=== PATIENT | female | born 1960 | race Caucasian/White ===

== ENCOUNTER → 2016-09-26 | Outpatient (CLI) | payer BC, OTHER ==
--- NOTE | 2016-09-26 17:18 | XR ---
EXAMINATION TYPE: XR ribs LT DATE OF EXAM: 09/26/2016 5:12 PM COMPARISON: NONE HISTORY: Left lower rib pain TECHNIQUE: 4 views FINDINGS: There is slight blunting of left costophrenic angle. I see no pneumothorax. Left lung is cl ear of consolidation. There is a nondisplaced fracture anterior left 10th rib. IMPRESSION: There is some pleural reaction or scarring at the left lung base that is improved compare d to the chest x-ray of 08/11/2015 with decreased pleural fluid. Acute nondisplaced fracture left ante rior 10th rib.. There are old healed left rib fractures.
== END | disposition home or self-care (01) ==
LOC: RADXRMAIN 16:44
PROVIDERS: ATTEND Psychiatry & Neurology Neurology
DX: S22.32XA Fracture of one rib, left side, initial encounter for closed fracture (principal)

== ENCOUNTER → 2019-03-03 | Outpatient (CLI) | payer BC ==
--- NOTE | 2019-03-03 12:17 | EST ---
EXERCISE STRESS AGE: 58 SEX: F HT: 62: WT: 104 PROTOCOL: [employer]air Stress Test STAGE: 4 DURATION OF EXERCISE: 9:10 HEART RATE REST: 50 BLOOD PRESSURE REST: 121/79 MAXIMUM HEART RATE ACHIEVED: 107 MAXIMUM BLOOD PRESSURE: 146/78 85% MPHR: 137 100% MPHR: 161 METS: 10.7 INDICATIONS: Chest pain/shortness of breath. CLINICAL INFORMATION: Patient was exercised for a total period of 9 minutes. Peak heart rate of 107 was achieved. The test was terminated because patient got short of breath and dizzy. Maximum blood pressure of 146/78 mmHg was noted. Resting EKG shows normal sinus rhythm with normal TX interval and QRS duration and normal ST-T waves. No ST-segment depression suggestive of ischemia is noted. No dysrhythmias are noted. FINAL IMPRESSION: 1. This exercise stress test is inconclusive to diagnose ischemia because only 66% of the age predicted heart rate was achieved. 2. However, patient's exercise tolerance is fairly normal. Patient did not complain of any chest pain during the test. MMODL / IJN: [id number] /
== END | disposition home or self-care (01) ==
LOC: RADNMMAIN 08:33
PROVIDERS: ATTEND Internal Medicine
DX: R93.1 Abnormal findings on diagnostic imaging of heart and coronary circulation (principal); R07.89 Other chest pain
CPT/HCPCS: 93017

== ENCOUNTER → 2019-04-29 | Outpatient (CLI) | payer BC ==
--- NOTE | 2019-04-29 13:00 | ECHOF ---
Referral Reason:R07.89 chest pain MEASUREMENTS -------- HEIGHT: 157.5 cm WEIGHT: 47.2 kg BP: RVIDd: 2.8 cm (< 3.3) IVSd: 1.1 cm (0.6 - 1.1) LVIDd: 3.6 cm (3.9 - 5.3) LVPWd: 1.0 cm (0.6 - 1.1) IVSs: 1.4 cm LVIDs: 2.6 cm LVPWs: 1.5 cm LAESV Index (A-L): 16.04 ml/m Ao Diam: 2.9 cm (2.0 - 3.7) AV Cusp: 2.1 cm (1.5 - 2.6) LA Diam: 2.6 cm (2.7 - 3.8) EPSS: 0.5 cm MV E Jose Guadalupe: 0.53 m/s MV DecT: 199 ms MV A Jose Guadalupe: 0.66 m/s MV E/A Ratio: 0.80 RAP: 5.00 mmHg RVSP: 23.34 mmHg %FS: 34.97 % EDV(Teich): 97.10 ml EF(Teich): 64.30 % ESV(Teich): 34.66 ml IVSd: 1.46 cm (0.6 - 1.1) IVSs: 1.88 cm LVIDd: 4.60 cm (3.9 - 5.3) LVIDs: 2.99 cm LVPWd: 1.36 cm (0.6 - 1.1) LVPWs: 1.76 cm MV EF SLOPE: 142.50 mm/s (70 - 150) MV EXCURSION: 1.87 cm (> 18.000) SV(Teich): 62.44 ml FINDINGS -------- Sinus rhythm. This was a technically adequate study. The left ventricular size is normal. There is borderline concentric left ventricular hypertrophy. Overall left ventricular systolic function is low-normal with, an EF between 50 - 55 %. The diasto lic filling pattern is normal for the age of the patient. The right ventricle is normal in size. Left atrium is normal size by volume. The right atrial size is normal. Interatrial and interventricular septum intact. The aortic valve is trileaflet and appears structurally normal. There is no evidence of aortic regu rgitation. There is no evidence of aortic stenosis. The mitral valve is normal. Mild mitral regurgitation is present. Mild tricuspid regurgitation present. There is no evidence of pulmonary hypertension. The right v entricular systolic pressure, as measured by Doppler, is 23.34mmHg. Trace/mild (physiologic) pulmonic regurgitation. The aortic root size is normal. The inferior vena cava was not well visualized. There is no pericardial effusion. CONCLUSIONS -------- 1. Sinus rhythm. 2. This was a technically adequate study. 3. The left ventricular size is normal. 4. There is borderline concentric left ventricular hypertrophy. 5. Overall left ventricular systolic function is low-normal with, an EF between 50 - 55 %. 6. The diastolic filling pattern is normal for the age of the patient. 7. The right ventricle is normal in size. 8. Left atrium is normal size by volume. 9. The right atrial size is normal. 10. Interatrial and interventricular septum intact. 11. The aortic valve is trileaflet and appears structurally normal. 12. There is no evidence of aortic regurgitation. 13. There is no evidence of aortic stenosis. 14. The mitral valve is normal. 15. Mild mitral regurgitation is present. 16. Mild tricuspid regurgitation present. 17. There is no evidence of pulmonary hypertension. 18. The right ventricular systolic pressure, as measured by Doppler, is 23.34mmHg. 19. Trace/mild (physiologic) pulmonic regurgitation. 20. The aortic root size is normal. 21. The inferior vena cava was not well visualized. 22. There is no pericardial effusion. PIE BAKER: Lilly Trievdi [facility]
== END | disposition home or self-care (01) ==
LOC: RADECHMAIN 11:20
PROVIDERS: ATTEND Internal Medicine
DX: I08.1 Rheumatic disorders of both mitral and tricuspid valves (principal)
CPT/HCPCS: 93306

== ENCOUNTER → 2019-05-10 | Outpatient (CLI) | payer BC | END | disposition home or self-care (01) | LOC: CPPFTMAIN 10:29 | PROVIDERS: ATTEND Internal Medicine | DX: J44.9 Chronic obstructive pulmonary disease, unspecified (principal); R94.2 Abnormal results of pulmonary function studies | CPT/HCPCS: 94060; 94726; 94729 ==

== ENCOUNTER 2023-09-15 10:37 | Inpatient (IN) | payer MEDICARE, OTHER ==
[2023-09-15 10:54] LABS: Glucose,Whole Blood 111 mg/dL (70-110)
--- NOTE | 2023-09-15 11:05 | ED ---
General Adult HPI - General Chief complaint: Shortness of Breath Stated complaint: SOB Time Seen by Provider: 09/15/23 10:38 Source: patient, EMS Mode of arrival: EMS Limitations: altered mental status - History of Present Illness Initial comments: Dictation was produced using [employer] dictation software. please excuse any grammatical, word or spelling errors. Chief Complaint: 63-year-old female past medical history of asthma, COPD fi bromyalgia presents to the ER for altered mental status and difficult in breathing History of Present Illness: 63-year-old female she began confused for the last 24 hours. She's been caught wandering around where she lives. Family noticed that she was dyspneic and confused. EMS was called on behalf of the patient. She was given breathing treatments prior to arrival. Patient allegedly has a h istory of COPD. Patient states she does for confused. She does have diffuse sharp chest pain. Cough and been short of breath. Denies any fever chills or night sweats. She denies given breathing treatment along with Solu-Medrol prior to arrival by EMS staff. The ROS documented in this emergency department record has been reviewed and confirmed by me. Those systems with pertinent positive or negative responses have been documented in the HPI. All other systems are other negative and/or no ncontributory. - Related Data Home Medications Medication Instructions Recorded Confirmed Multivitamins, Thera [Multivitamin 1 tab PO DAILY 08/03/15 09/15/23 (formulary)] Acetaminophen/Diphenhydramine 1 tab PO HS 09/15/23 09/15/23 [Tylenol PM 500-25mg] Ascorbic Acid [Vitamin C] 1,000 mg PO DAILY 09/15/23 09/15/23 Elderberry Fruit [Elderberry] 350 mg PO DAILY 09/15/23 09/15/23 Allergies Allergy/AdvReac Type Severity Reaction Status Date / Time No Known Allergies Allergy Verified 09/15/23 12:55 Review of Systems ROS Statement: Those systems with pertinent positive or pertinent negative responses have been documented in the HPI. ROS Other: All systems not noted in ROS Statement are negative. Past Medical History Past Medical History: Asthma, CVA/TIA, Fibromyalgia Additional Past Medical History / Comment(s): glaucoma, TIA-2014 History of Any Multi-Drug Resistant Organisms: None Reported Past Surgical History: No Surgical Hx Reported, Hysterectomy, Tonsillectomy Past Anesthesia/Blood Transfusion Reactions: Motion Sickness Past Psychological History: Anxiety Smoking Status: Current every day smoker Past Alcohol Use History: None Reported Past Drug Use History: Marijuana - Past Family History Mother Additional Family Medical History / Comment(s): carotid stenosis Brother(s) Family Medical History: Cancer, CVA/TIA Additional Family Medical History / Comment(s): brother had throat and bladder cancer General Exam - General Exam Comments Initial Comments: PHYSICAL EXAM: General Impression: Alert and oriented x3/4, not in acute distress HEENT: Normocephalic atraumatic, extra-ocular movements intact, pupils equal and reactive to light bilaterally, mucous membranes moist. Cardiovascular: Heart regular rate and rhythm Chest: Able to complete full sentences, no retractions, no tachypnea, diffuse lung wheezing Abdomen: abdomen soft, non-tender, non-distended, no organomegaly Musculoskeletal: Pulses present and equal in all extremities, no peripheral edema Motor: no focal deficits noted Neurological: CN II-XII grossly intact, no focal motor or sensory deficits noted Skin: Intact with no visualized rashes Psych: Normal affect and mood Limitations: altered mental status Course Vital Signs 09/15/23 09/15/23 09/15/23 10:39 10:44 11:00 Temperature 98.4 F Pulse Rate 78 76 71 Respiratory 20 22 22 Rate Blood Pressure 142/101 156/92 156/92 O2 Sat by Pulse 96 97 95 Oximetry 09/15/23 09/15/23 11:30 12:00 Temperature Pulse Rate 71 74 Respiratory 22 22 Rate Blood Pressure 132/83 113/71 O2 Sat by Pulse 93 L 95 Oximetry EKG Findings - EKG Comments: EKG Findings:: My EKG interpretation: Ventricular rate 77, sinus rhythm,. Interval 129, QRS 84, QTC 416. No OR prolongation, no QTC prolongation, no ST or T-wave changes noted. Overall, this EKG is unremarkable Medical Decision Making - Medical Decision Making Was pt. sent in by a medical professional or institution (, [place], [facility], urgent care, hospital, or fci...) When possible be specific @ -No Did you speak to anyone other than the patient for history (EMS, parent, family, police, friend...)? What history was obtained from this source @ -more history was obtained from family members at the bedside states that patient has been acting very bizarre since yesterday. She has no history of illicit drug use. They suspect that she did fall. Hit her head. Did you review nursing and triage notes (agree or disagree)? Why? @ -I reviewed and agree with nursing and triage notes Were old charts reviewed (outside hosp., previous admission, EMS record, old EKG, old radiological studies, urgent care reports/EKG's, fci records)? Report findings @ -No old charts were reviewed Differential Diagnosis (chest pain, altered mental status, abdominal pain women, abdominal pain men, vaginal bleeding, musculoskeletal, weakness, fever, dyspnea, syncope, headache, dizziness, GI bleed, back pain, seizure, CVA, palpatations, mental health)? @ -Differential Altered Mental Status: Hypoglycemia, DKA, hypercapnia, ETOH, overdose, CO poisoning, trauma, myxedema coma, HTN encephalopathy, infection, encephalitis, psychosis, intercranial hemorrhage, hepatic encephalopathy, meningitis, CVA, this is not meant to be an all-inclusive list EKG interpreted by me (3pts min.). @ -See above X-rays interpreted by me (1pt min.). @ -Chest x-ray is unremarkable CT interpreted by me (1pt min.). @ -Scan of brain is unremarkable U/S interpreted by me (1pt. min.). @ -None done What testing was considered but not performed or refused? (CT, X-rays, U/S, labs)? Why? @ -None What meds were considered but not given or refused? Why? @ -None Did you discuss the management of the patient with other professionals (professionals i.e. , PA, [facility], lab, RT, psych nurse, clinical social worker, door framer, teacher, transit police officer, patient case manager)? Give summary @ -Discussed with hospitalist for admission Was smoking cessation discussed for >3mins.? @ -No Was critical care preformed (if so, how long)? @ -No Were there social determinants of health that impacted care today? How? (Homelessness, low income, unemployed, alcoholism, drug addiction, trans portation, low edu. Level, literacy, decrease access to med. care, care home, rehab)? @ -No Was there de-escalation of care discussed even if they declined (Discuss DNR or withdrawal of care, Hospice)? DNR status @ -No What co-morbidities impacted this encounter? (DM, HTN, Smoking, COPD, CAD, Cancer, CVA, ARF, Chemo, Hep., AIDS, mental health diagnosis, sleep apnea, morbid obesity)? @ -None Was patient admitted / discharged? Hospital course, mention meds given and route, prescriptions, significant lab abnormalities, going to OR and other pertinent info. @ -63-year-old female presents emergency department for dyspnea along with altered mental status. Vital signs upon arrival are within acceptable limits. Patient not overly dyspneic appearing at the bedside. She has bilateral wheezing. Vital signs otherwise stable. She tested positive for RSV. Wheezing secondary bronchiolitis. Labs otherwise unremarkable. CT brain is negative. Undiagnosed new problem with uncertain prognosis? @ -No Drug Therapy requiring intensive monitoring for toxicity (Heparin, Nitro, Insulin, Cardizem)? @ -No Were any procedures done? @ -No Diagnosis/symptom? Acute, or Chronic, or Acute on Chronic? Uncomplicated (without systemic symptoms) or Complicated (systemic symptoms)? @ -Acute altered mental status, no obvious source, RSV bronchiolitis Side effects of treatment? @ -No Exacerbation, Progression, or Severe Exacerbation? @ -No Poses a threat to life or bodily function? How? (Chest pain, [place], [place], pneumonia, PE, COPD, DKA, ARF, appy, cholecystitis, CVA, Diverticulitis, Homicidal, Suicidal, threat to staff... and all critical care pts) @ -yes - Lab Data Result diagrams: 09/15/23 11:06 09/15/23 11:06 Lab Results 09/15/23 09/15/23 09/15/23 Range/Units 10:51 11:06 11:06 WBC 5.7 (3.8-10.6) k/uL RBC 4.52 (3.80-5.40) m/uL Hgb 14.0 (11.4-16.0) gm/dL Hct 42.3 (34.0-46.0) % MCV 93.7 (80.0-100.0) fL MCH 31.0 (25.0-35.0) pg MCHC 33.1 (31.0-37.0) g/dL RDW 14.4 (11.5-15.5) % Plt Count 269 (150-450) k/uL MPV 7.9 Neutrophils % 67 % Lymphocytes % 19 % Monocytes % 9 % Eosinophils % 2 % Basophils % 0 % Neutrophils # 3.8 (1.3-7.7) k/uL Lymphocytes # 1.1 (1.0-4.8) k/uL Monocytes # 0.5 (0-1.0) k/uL Eosinophils # 0.1 (0-0.7) k/uL Basophils # 0.0 (0-0.2) k/uL VBG pH (7.31-7.41) VBG pCO2 (37-51) mmHg VBG HCO3 (24-28) mmol/L Sodium 141 (137-145) mmol/L Potassium 4.1 (3.5-5.1) mmol/L Chloride 108 H (98-107) mmol/L Carbon Dioxide 19 L (22-30) mmol/L Anion Gap 14 mmol/L BUN 13 (7-17) mg/dL Creatinine 0.74 (0.52-1.04) mg/dL Est GFR (CKD-EPI)AfAm >90 (>60 ml/min/1.73 sqM) Est GFR (CKD-EPI)NonAf 87 (>60 ml/min/1.73 sqM) Glucose 116 H (74-99) mg/dL POC Glucose (mg/dL) 111 H (70-110) mg/dL POC Glu Warehouse Checker ID Melanie Gould Plasma Lactic Acid Anthony (0.7-2.0) mmol/L Calcium 8.8 (8.4-10.2) mg/dL Magnesium 1.9 (1.6-2.3) mg/dL Total Bilirubin 0.7 (0.2-1.3) mg/dL AST 36 (14-36) U/L ALT 21 (4-34) U/L Alkaline Phosphatase 75 (38-126) U/L Total Protein 6.9 (6.3-8.2) g/dL Albumin 4.3 (3.5-5.0) g/dL Influenza Type A (PCR) (Not Detectd) Influenza Type B (PCR) (Not Detectd) RSV (PCR) (Not Detectd) SARS-CoV-2 (PCR) (Not Detectd) 09/15/23 09/15/23 09/15/23 Range/Units 11:06 11:06 11:06 WBC (3.8-10.6) k/uL RBC (3.80-5.40) m/uL Hgb (11.4-16.0) gm/dL Hct (34.0-46.0) % MCV (80.0-100.0) fL MCH (25.0-35.0) pg MCHC (31.0-37.0) g/dL RDW (11.5-15.5) % Plt Count (150-450) k/uL MPV Neutrophils % % Lymphocytes % % Monocytes % % Eosinophils % % Basophils % % Neutrophils # (1.3-7.7) k/uL Lymphocytes # (1.0-4.8) k/uL Monocytes # (0-1.0) k/uL Eosinophils # (0-0.7) k/uL Basophils # (0-0.2) k/uL VBG pH 7.38 (7.31-7.41) VBG pCO2 39 (37-51) mmHg VBG HCO3 23 L (24-28) mmol/L Sodium (137-145) mmol/L Potassium (3.5-5.1) mmol/L Chloride (98-107) mmol/L Carbon Dioxide (22-30) mmol/L Anion Gap mmol/L BUN (7-17) mg/dL Creatinine (0.52-1.04) mg/dL Est GFR (CKD-EPI)AfAm (>60 ml/min/1.73 sqM) Est GFR (CKD-EPI)NonAf (>60 ml/min/1.73 sqM) Glucose (74-99) mg/dL POC Glucose (mg/dL) (70-110) mg/dL POC Glu Warehouse Checker ID Plasma Lactic Acid Anthony 1.7 (0.7-2.0) mmol/L Calcium (8.4-10.2) mg/dL Magnesium (1.6-2.3) mg/dL Total Bilirubin (0.2-1.3) mg/dL AST (14-36) U/L ALT (4-34) U/L Alkaline Phosphatase (38-126) U/L Total Protein (6.3-8.2) g/dL Albumin (3.5-5.0) g/dL Influenza Type A (PCR) Not Detected (Not Detectd) Influenza Type B (PCR) Not Detected (Not Detectd) RSV (PCR) Detected A (Not Detectd) SARS-CoV-2 (PCR) Not Detected (Not Detectd) Disposition Clinical Impression: AMS (altered mental status) Disposition: ADMITTED IP TO THIS [facility] Condition: Fair Decision Time: 13:06
[2023-09-15 11:21] LABS: Basophils % (A) 0 %; Eosinophils # (A) 0.1 k/uL (0-0.7); Eosinophils % (A) 2 %; HCT 42.3 % (34.0-46.0); Lymphocytes # (A) 1.1 k/uL (1.0-4.8); Lymphocytes % (A) 19 %; MCHC 33.1 g/dL (31.0-37.0); MCV 93.7 fL (80.0-100.0); Mean Platelet Volume 7.9; Monocytes # (A) 0.5 k/uL (0-1.0); Monocytes % (A) 9 %; Neutrophils # (A) 3.8 k/uL (1.3-7.7); Neutrophils % (A) 67 %; Platelet Count 269 k/uL (150-450); RBC 4.52 m/uL (3.80-5.40); RDW 14.4 % (11.5-15.5); WBC 5.7 k/uL (3.8-10.6)
[2023-09-15 11:39] LABS: ALT 21 U/L (4-34); AST 36 U/L (14-36); African American GFR (CKD) >90 (>60 ml/min/1.73 sqM); Albumin 4.3 g/dL (3.5-5.0); Alkaline Phosphatase 75 U/L (38-126); Anion Gap 14 mmol/L; Blood Urea Nitrogen 13 mg/dL (7-17); Calcium 8.8 mg/dL (8.4-10.2); Carbon Dioxide 19 mmol/L (22-30); Chloride 108 mmol/L (98-107); Glucose 116 mg/dL (74-99); Magnesium 1.9 mg/dL (1.6-2.3); Non-African American GFR(CKD) 87 (>60 ml/min/1.73 sqM); Potassium 4.1 mmol/L (3.5-5.1); Sodium 141 mmol/L (137-145); Total Bilirubin 0.7 mg/dL (0.2-1.3); Total Protein 6.9 g/dL (6.3-8.2)
[2023-09-15 11:47] LABS: VBG PH 7.38 (7.31-7.41)
--- NOTE | 2023-09-15 12:31 | CT ---
EXAMINATION TYPE: CT brain wo con CT DLP: 1095.4 mGycm, Automated exposure control for dose reduction was used. DATE OF EXAM: 09/15/2023 11:57 AM COMPARISON: None. CLINICAL INDICATION:Female, 63 years old with history of ams, confusion TECHNIQUE: Brain: Axial CT images of the brain were obtained with coronal and sagittal reformats created and rev iewed. Contrast used: None. Oral contrast used: None. FINDINGS: Extra-axial spaces: No abnormal extra-axial fluid collections. Ventricular system: Within normal limits. Cerebral parenchyma: No increased attenuation to suggest acute intraparenchymal hemorrhage. The gra y-white matter interface appears maintained. No significant atrophy. White matter unremarkable by C T. Small calcifications in the bilateral basal ganglia. Cerebellum: No acute abnormality. Mass effect: No evidence of mass effect or midline shift. Intracranial vasculature: Unremarkable Soft tissues: Normal. Visualized orbits: Orbital contents appear grossly intact. Calvarium/osseous structures: No evidence of calvarial fracture. Paranasal sinuses and mastoid air cells: Mild/moderate scattered paranasal sinus disease. MRI is more sensitive for detecting acute processes such as infarct, and may be considered if clinica lly warranted. IMPRESSION: No acute intracranial CT abnormality.
[2023-09-15] MEDS ORDERED: NALOXONE 0.4 MG/ML 1 ML VIAL IV PRN (13:02)
[2023-09-15] MEDS ORDERED: DOCUSATE 100 MG CAP PO PRN (13:09)
[2023-09-15] MEDS ORDERED: ONDANSETRON 4 MG/2 ML VIAL IVP PRN (13:09)
[2023-09-15] MEDS ORDERED: MAG HYDROX/AL HYDROX/SIMETH 30 ML CUP PO PRN (13:09)
--- NOTE | 2023-09-15 13:37 | XR ---
EXAMINATION TYPE: XR chest 1V portable DATE OF EXAM: 09/15/2023 Comparison: 08/11/2015 Clinical History: 63-year-old female wheezing Findings: Heart normal size. Aorta and pulmonary vasculature are within normal limits. Hyperinflation. No conso lidation or pleural effusion. Impression: COPD. No acute process seen.
[2023-09-15] MEDS: SODIUM CHLORIDE 0.9% 1,000 ML IV SCH (13:58)
[2023-09-15] MEDS ORDERED: methylPREDNISolone SOD SUCCIN 125 MG in SODIUM CHLORIDE 0.9% 100 ML IVPB STA (14:01)
[2023-09-15] MEDS ORDERED: IPRATROPIUM-ALBUTEROL 3 ML NEB INHALATION PRN (14:01)
[2023-09-15] MEDS ORDERED: methylPREDNISolone SOD SUCCI 125 MG/2 ML VIAL IVP ONE (14:15)
[2023-09-15] MEDS ORDERED: methylPREDNISolone SOD SUCCI 125 MG/2 ML VIAL IV ONE (14:15)
[2023-09-15 14:19] LABS: Appearance,Urine Clear (Clear); Bacteria,Urine Many /hpf; Bilirubin,Urine Negative (Negative); Blood,Urine Small (Negative); Color,Urine Yellow; Glucose,Urine (UA) Negative (Negative); Hyaline Casts,Urine 1 /lpf (0-2); Ketones,Urine 2+ (Negative); Leukocyte Esterase,Urine Small (Negative); Mucus,Urine Moderate /hpf; Nitrite,Urine Positive (Negative); PH, Urine 5.5 (5.0-8.0); Protein,Urine Trace (Negative); RBC,Urine 2 /hpf (0-5); Squamous Epithelial Cell,Urine <1 /hpf (0-4); Urobilinogen,Urine <2.0 mg/dL (<2.0); WBC,Urine 6 /hpf (0-5)
[2023-09-15 14:26] LABS: Amphetamine Screen,Urine Not Detected (NotDetected); Benzodiazepines Screen,Urine Not Detected (NotDetected); Cocaine Screen,Urine Not Detected (NotDetected); Methadone Screen, Urine Not Detected (NotDetected); Opiate Screen,Urine Not Detected (NotDetected); Phencyclidine Screen,Urine Not Detected (NotDetected); Tricyclic Antidepressant,Urine Not Detected (NotDetected); Urn Cannabinoid Scrn Detected (NotDetected)
[2023-09-15 14:27] LABS: Barbiturate Screen,Urine Not Detected (NotDetected); Oxycodone Screen, Urine Not Detected (NotDetected)
--- NOTE | 2023-09-15 14:28 | P.HPIM ---
History of Present Illness H&P Date: 09/15/23 63 year old F with no significant PMH and history of smoking presents to the ED for altered mental status. Niece and sister is at bedside providing majority of the history. Last known normal was yesterday morning on the phone. Niece and sister attempted to call the patient last night where she did not answer. They were able to reach her this morning, she appeared confused and short of breath which prompted them to call EMS. The patient did mention she believes she spent majority of the night on the porch, unable to get up, crawled her way to the bedroom at some point last night where she may have soiled herself. When EMS arrived, patient was found sitting on the floor with her head down, di aphoretic, short of breath, hypoxic with O2 saturation in the 80s. Reports smoking 1/4 pack daily for many years (> 10). Denies EtOH or illicit drug use. Patient's mentation has considerably improved during the encounter but unable to remember much of the events leading up to her hospitalization. She reports LUE numbness and clumsiness. She reports nasal congestion, cough and shortness of breath that has been ongoing for the past 2-3 days. She reports left sided chest pain, sharp and stabbing, worse with deep inspiration. In the ED, patient underwent extensive evaluation. Vital signs were stable however hypoxic to 84% when talking. CBC unremarkable. VBG pH 7.28, pCO2 39. CMP Cl 108, bicarb 19, glu 116. Lactic acid 1.7. RSV + EKG sinus arrhythmia, ST depression. Brain CT negative for acute findings. Patient is admitted for workup of altered mental status. General: non toxic, mild distress, appears at stated age Derm: warm, dry Head: atraumatic, normocephalic, symmetric Eyes: EOMI, no lid lag, anicteric sclera Mouth: no lip lesion, mucus membranes moist Cardiovascular: S1S2 reg, no murmur Lungs: Diffuse expiratory wheezing bilateral, no rhonchi, no rales , + accessory muscle use Ext: no gross muscle atrophy, no edema, no contractures Neuro: no focal neuro deficits Psych: Alert, oriented, appropriate affect Based on my assessment of this patient, this patient meets a high complexity level of care. Patient has an acute diagnosis of altered mental status that poses a threat to life or bodily function. Found to be hypoxic and RSV+ Aucte metabolic encephalopathy: Likely due to hypoxia. She does reports LUE numbness and clumsiness. CT head negative for CVA. Obtain TSH, UA/UCx, Ammonia, UDS, EtOH, B12 and Folate. Fall precautions. Neurochecks. May need MRI brain and/or EEG, will defer decision to Neurology. Acute hypoxic respiratory failure: Likely due to below. Obtain D-Dimer. Obtain pro-calcitonin. Obtain CXR. RSV pneumonia: Supportive treatment. Acute COPD exacerbation: DuoNeb scheduled and PRN for SOB/wheezing. Start SoluMedrol 60 mg IV Q6H. Pulmonary consult. Chest pain: Appears pleuritic. D-Dimer to rule out low probability of PE. Trend Trop/EKG to rule out ACS. Obtain Echo. Telemetry monitoring. Smoker: Patient offered nicotine patch. CODE STATUS: FULL CODE DVT Prophylaxis: Lovenox SQ GI Prophylaxis: Protonix Designated medical POA if patient is not able to make medical decisions for themselves: Sister I have reviewed the following database consultant notes: I have reviewed the results of the following tests: As above. I have ordered the following tests: As above. I have discussed the care of this patient with the following independent historian: Sister and niece. I have independently interpreted the following test below: EKG as above. I have discussed the management of this patient with the following physician: Past Medical History Past Medical History: Asthma, CVA/TIA, Fibromyalgia Additional Past Medical History / Comment(s): glaucoma, TIA-2013 History of Any Multi-Drug Resistant Organisms: None Reported Past Surgical History: No Surgical Hx Reported, Hysterectomy, Tonsillectomy Past Anesthesia/Blood Transfusion Reactions: Motion Sickness Past Psychological History: Anxiety Smoking Status: Current every day smoker Past Alcohol Use History: None Reported Past Drug Use History: Marijuana - Past Family History Mother Additional Family Medical History / Comment(s): carotid stenosis Brother(s) Family Medical History: Cancer, CVA/TIA Additional Family Medical History / Comment(s): brother had throat and bladder cancer Medications and Allergies Home Medications Medication Instructions Recorded Confirmed Type Multivitamins, Thera [Multivitamin 1 tab PO DAILY 08/03/15 09/15/23 History (formulary)] Acetaminophen/Diphenhydramine 1 tab PO HS 09/15/23 09/15/23 History [Tylenol PM 500-25mg] Ascorbic Acid [Vitamin C] 1,000 mg PO DAILY 09/15/23 09/15/23 History Elderberry Fruit [Elderberry] 350 mg PO DAILY 09/15/23 09/15/23 History Allergies Allergy/AdvReac Type Severity Reaction Status Date / Time No Known Allergies Allergy Verified 09/15/23 12:55 Physical Exam Vitals: Vital Signs Temp Pulse Resp BP Pulse Ox 09/15/23 14:22 98.7 F 81 18 111/83 90 L 09/15/23 12:00 74 22 113/71 95 09/15/23 11:30 71 22 132/83 93 L 09/15/23 11:00 71 22 156/92 95 09/15/23 10:44 76 22 156/92 97 09/15/23 10:39 98.4 F 78 20 142/101 96 Intake and Output 09/14/23 09/15/23 09/15/23 22:59 06:59 14:59 Other: Weight 45.359 kg Results CBC & Chem 7: 09/15/23 11:06 09/15/23 11:06 Labs: Abnormal Lab Results - Last 24 Hours (Table) 09/15/23 09/15/23 09/15/23 Range/Units 10:51 11:06 11:06 VBG HCO3 (24-28) mmol/L Chloride 108 H (98-107) mmol/L Carbon Dioxide 19 L (22-30) mmol/L Glucose 116 H (74-99) mg/dL POC Glucose (mg/dL) 111 H (70-110) mg/dL Urine Protein (Negative) Urine Ketones (Negative) Urine Blood (Negative) Urine Nitrite (Negative) Ur Leukocyte Esterase (Negative) Urine WBC (0-5) /hpf Urine Bacteria (None) /hpf Urine Mucus (None) /hpf RSV (PCR) Detected A (Not Detectd) 09/15/23 09/15/23 Range/Units 11:06 14:05 VBG HCO3 23 L (24-28) mmol/L Chloride (98-107) mmol/L Carbon Dioxide (22-30) mmol/L Glucose (74-99) mg/dL POC Glucose (mg/dL) (70-110) mg/dL Urine Protein Trace H (Negative) Urine Ketones 2+ H (Negative) Urine Blood Small H (Negative) Urine Nitrite Positive H (Negative) Ur Leukocyte Esterase Small H (Negative) Urine WBC 6 H (0-5) /hpf Urine Bacteria Many H (None) /hpf Urine Mucus Moderate H (None) /hpf RSV (PCR) (Not Detectd)
[2023-09-15] MEDS: IPRATROPIUM-ALBUTEROL 3 ML NEB INHALATION SCH ×2 (15:30→20:40)
[2023-09-15] MEDS: methylPREDNISolone SOD SUCCI 125 MG/2 ML VIAL IV SCH ×2 (18:22→23:00)
[2023-09-15] MEDS: ASPIRIN 81 MG PO SCH (18:29)
--- NOTE | 2023-09-15 20:11 | US ---
EXAMINATION TYPE: US carotid duplex BILAT DATE OF EXAM: 09/15/2023 COMPARISON: NONE CLINICAL INDICATION: Female, 63 years old with history of amnesia, r/o stenosis/CVA. smoker; smoker TECHNIQUE: Carotid duplex ultrasound examination. Indirect Doppler criteria was utilized. FINDINGS: EXAM MEASUREMENTS: RIGHT: Peak Systolic Velocity (PSV) cm/sec ----- Right CCA: 76.9 ----- Right ICA: 104.8 ----- Right ECA: 101.6 ICA/CCA ratio: 1.4 RIGHT: End Diastole cm/sec ----- Right CCA: 23.1 ----- Right ICA: 38.6 ----- Right ECA: 22.5 LEFT: Peak Systolic Velocity (PSV) cm/sec ----- Left CCA: 91.1 ----- Left ICA: 104.3 ----- Left ECA: 114.1 ICA/CCA ratio: 1.1 LEFT: End Diastole cm/sec ----- Left CCA: 19.7 ----- Left ICA: 39.5 ----- Left ECA: 19.5 VERTEBRALS (direction of flow): Right Vertebral: Antegrade Left Vertebral: Antegrade Rhythm: Normal FORMAL WAITER/WAITRESS NOTES: No plaque seen. No elevated velocities IMPRESSION: Less than 50% stenosis of the bilateral carotid bifurcations. Criteria for Assigning % of Stenosis / Diameter reduction (Estimation based on the indirect measurements of the internal carotid artery velocities (ICA PSV). 1. Normal (no stenosis)=ICA PSV < 125 cm/s: ratio < 2.0: ICA EDV<40 cm/s. 2. Less than 50% stenosis=ICA PSV < 125 cm/s: ratio < 2.0: ICA EDV<40 cm/s. 3. 50 to 69% stenosis=ICA PSV of 125 to 230 cm/s: ration 2.0 ? 4.0: ICA EDV 40-100 cm/s. 4. Greater than 70% stenosis to near occlusion= ICA PSV > 230 cm/s: ratio > 4.0: ICA EDV > 100 cm/s. 5. Near occlusion= ICA PSV velocities may be low or undetectable: variable ratio and ICA EDV. 6. Total occlusion=unable to detect flow.
[2023-09-15] MEDS: MELATONIN 3 MG TABLET PO PRN (23:13)
[2023-09-15] MEDS: ACETAMINOPHEN TAB 325 MG TAB PO PRN (23:14)
--- NOTE | 2023-09-16 03:55 | P.CNPUL ---
History of Present Illness Consult date: 09/16/23 Requesting physician: Logan Galeano Reason for consult: asthma, COPD Chief complaint: Shortness of breath and confusion History of present illness: I am seeing this patient in consultation today 09/16/2023 after she presented to the hospital yesterday morning chiefly for acute dyspnea and confusion. Patient is a 63-year-old white female past medical history significant for asthma, fibromyalgia, and previous CVA/TIA. She is a current every day smoker. Her primary care provider is Dr. Mejia. Patient is currently sitting up in bed, on 2 L/m nasal cannula, in no acute distress. She states that she does not remember much of what happened prior to coming in. She does state that she's been short of breath for approximately 4-5 days. She was around her 2 nieces, that recently ended up testing positive for RSV. Patient states that with her shortness breath, she's had an associated persistent nonproductive cough, wheezing, severe chest tightness. She states she has a history of asthma. Never been diagnosed with COPD. Although, she does continue to smoke. She is normally maintained on a combination of Advair and when necessary albuterol rescue inhaler. Patient did have positive urinalysis on admission. When questioned, the patient admits suprapubic tenderness and urinary frequency. Or hematuria Denies any burning or dysuria. No flank pain or hematuria. CBC on arrival was unremarkable. BMP on arrival: Sodium 141, potassium 4.1, chloride 108, serum bicarb 19, BUN 13, creatinine 0.74, glucose 117. Troponins less than 0.012. Procalcitonin level was low. Patient did test positive for RSV. She is currently afebrile. Vital signs are stable. Review of Systems REVIEW OF SYSTEMS: CONSTITUTIONAL: Denies any recent significant weight loss or weight gain. EYES: Denies change in vision. EARS, NOSE, MOUTH, THROAT: Denies headaches, denies sore throat. CARDIOVASCULAR: Denies chest pain, palpitations or syncopal episodes. RESPIRATORY: See HPI. GASTROINTESTINAL: Denies change in appetite, abdominal pain, nausea and vomiting, or diarrhea GENITOURINARY: See HPI MUSKULOSKELETAL: Denies pain, denies swelling. INTEGUMENTARY: Denies rash, denies eczema. NEUROLOGICAL: Denies recent memory loss, no recent seizure activity. PSYCHIATRIC: Denies anxiety, denies depression. HEMATOLOGIC/LYMPHATIC: Denies anemia, denies enlarged lymph node Past Medical History Past Medical History: Asthma, CVA/TIA, Fibromyalgia Additional Past Medical History / Comment(s): glaucoma, TIA-2013 History of Any Multi-Drug Resistant Organisms: None Reported Past Surgical History: No Surgical Hx Reported, Hysterectomy, Tonsillectomy Past Anesthesia/Blood Transfusion Reactions: Motion Sickness Past Psychological History: Anxiety Smoking Status: Current every day smoker Past Alcohol Use History: None Reported Past Drug Use History: Marijuana - Past Family History Mother Additional Family Medical History / Comment(s): carotid stenosis Brother(s) Family Medical History: Cancer, CVA/TIA Additional Family Medical History / Comment(s): brother had throat and bladder cancer Medications and Allergies Home Medications Medication Instructions Recorded Confirmed Type Multivitamins, Thera [Multivitamin 1 tab PO DAILY 08/03/15 09/15/23 History (formulary)] Acetaminophen/Diphenhydramine 1 tab PO HS 09/15/23 09/15/23 History [Tylenol PM 500-25mg] Ascorbic Acid [Vitamin C] 1,000 mg PO DAILY 09/15/23 09/15/23 History Elderberry Fruit [Elderberry] 350 mg PO DAILY 09/15/23 09/15/23 History Allergies Allergy/AdvReac Type Severity Reaction Status Date / Time No Known Allergies Allergy Verified 09/15/23 12:55 Physical Exam Vitals: Vital Signs Temp Pulse Pulse Resp BP BP Pulse Ox 09/16/23 00:15 97.9 F 63 19 125/80 95 09/16/23 00:05 76 09/15/23 23:55 80 09/15/23 20:50 80 09/15/23 20:40 76 09/15/23 18:48 98.1 F 61 19 122/77 93 L 09/15/23 18:28 69 18 111/67 92 L 09/15/23 18:00 62 24 149/134 94 L 09/15/23 17:30 65 13 135/89 92 L 09/15/23 17:00 67 27 H 118/73 92 L 09/15/23 16:30 66 20 122/94 92 L 09/15/23 16:00 70 20 129/96 92 L 09/15/23 15:41 76 20 09/15/23 15:33 84 18 93 L 09/15/23 15:30 78 20 108/83 92 L 09/15/23 15:00 20 127/78 91 L 09/15/23 14:35 94 L 09/15/23 14:30 18 111/83 94 L 09/15/23 14:22 98.7 F 81 18 111/83 90 L 09/15/23 14:00 77 18 106/79 91 L 09/15/23 13:30 67 18 100/90 91 L 09/15/23 13:00 66 18 109/73 89 L 09/15/23 12:30 69 18 128/88 90 L 09/15/23 12:00 74 22 113/71 95 09/15/23 11:30 71 22 132/83 93 L 09/15/23 11:00 71 22 156/92 95 09/15/23 10:44 76 22 156/92 97 09/15/23 10:39 98.4 F 78 20 142/101 96 Intake and Output 09/15/23 09/15/23 09/16/23 14:59 22:59 06:59 Other: # Voids 3 Weight 45.359 kg 45.359 kg GENERAL EXAM: Alert, 63-year-old white female , with a persistent harsh nonproductive cough, fairly comfortable in no apparent distress. HEAD: Normocephalic and atraumatic EYES: Normal reaction of pupils, equal size. NOSE: Clear with pink turbinates. THROAT: No erythema or exudates. NECK: No masses, no JVD. CHEST: No chest wall deformity. LUNGS: Equal air entry with significant expiratory wheezing. Bronchospastic cough. On 2 L/m nasal cannula. No conversational dyspnea or accessory muscle use at rest.. CVS: S1 and S2 normal with no audible murmur, regular rhythm. No extra heart sounds ABDOMEN: No hepatosplenomegaly, active bowel sounds, no guarding or rigidity. SPINE: No scoliosis or deformity SKIN: No rashes CENTRAL NERVOUS SYSTEM: No focal deficits, tone is normal in all 4 extremities. EXTREMITIES: There is no peripheral edema, clubbing, or cyanosis. Peripheral pulses are intact. Results - Laboratory Findings CBC and BMP: 09/15/23 11:06 09/15/23 11:06 PT/INR, D-dimer D-Dimer 0.35 mg/L FEU (<0.60) 09/15/23 14:37 Abnormal lab findings: Abnormal Labs 09/15/23 09/15/23 09/15/23 10:51 11:06 11:06 VBG HCO3 Chloride 108 H Carbon Dioxide 19 L Glucose 116 H POC Glucose (mg/dL) 111 H Urine Protein Urine Ketones Urine Blood Urine Nitrite Ur Leukocyte Esterase Urine WBC Urine Bacteria Urine Mucus U Marijuana (THC) Screen RSV (PCR) Detected A 09/15/23 09/15/23 09/15/23 11:06 14:05 14:05 VBG HCO3 23 L Chloride Carbon Dioxide Glucose POC Glucose (mg/dL) Urine Protein Trace H Urine Ketones 2+ H Urine Blood Small H Urine Nitrite Positive H Ur Leukocyte Esterase Small H Urine WBC 6 H Urine Bacteria Many H Urine Mucus Moderate H U Marijuana (THC) Screen Detected H RSV (PCR) - Diagnostic Findings Chest x-ray: image reviewed Assessment and Plan Assessment: Acute asthma exacerbation secondary to acute RSV infection, chest x-ray does not show any focal infiltrates or evidence of pneumonia. There is significant hyperinflation and flattened diaphragm. Acute hypoxemic respiratory failure, currently on 2 L/m nasal cannula, secondary to above Chronic ongoing tobacco dependence Suspected urinary tract infection Acute metabolic encephalopathy, probably related to hypoxia and above, improved History of CVA/TIA History of fibromyalgia Plan: Patient's medications, labs, chest x-ray reviewed. Continue supplemental oxygen Continue combination of bronchodilators, Symbicort inhaler, and IV Solu-Medrol Continue supportive treatment for RSV. Empirically covering with Rocephin for possible urinary tract infection. Patient has vague urinary complaints. UA positive for nitrates, leukocyte esterase, and pyuria. Smoking cessation encouraged. Nicotine replacement offered. We will continue to follow, and additional recommendations are forthcoming I have personally seen and examined the patient, performed the documentation and the assessment and plan as written. Number of minutes spent on the visit:20 Time with Patient: Greater than 30
[2023-09-16] MEDS: methylPREDNISolone SOD SUCCI 125 MG/2 ML VIAL IV SCH ×4 (06:30→22:50)
[2023-09-16 06:45] LABS: HCT 40.3 % (34.0-46.0); HGB 13.1 gm/dL (11.4-16.0); MCH 30.6 pg (25.0-35.0); MCHC 32.6 g/dL (31.0-37.0); Mean Platelet Volume 7.6; Platelet Count 239 k/uL (150-450); RBC 4.29 m/uL (3.80-5.40); RDW 14.1 % (11.5-15.5); WBC 9.3 k/uL (3.8-10.6)
[2023-09-16 06:54] LABS: African American GFR (CKD) >90 (>60 ml/min/1.73 sqM); Anion Gap 9 mmol/L; Blood Urea Nitrogen 20 mg/dL (7-17); Calcium 9.1 mg/dL (8.4-10.2); Carbon Dioxide 23 mmol/L (22-30); Chloride 105 mmol/L (98-107); Glucose 132 mg/dL (74-99); Non-African American GFR(CKD) >90 (>60 ml/min/1.73 sqM); Potassium 4.5 mmol/L (3.5-5.1); Sodium 137 mmol/L (137-145)
[2023-09-16] MEDS: PANTOPRAZOLE 40 MG TABLET PO SCH (07:43)
[2023-09-16] MEDS: NICOTINE 14MG/24HR PATCH TRANSDERM SCH (07:43)
[2023-09-16] MEDS: ENOXAPARIN 40 MG/0.4 ML SYRINGE SQ SCH (07:43)
[2023-09-16] MEDS: ASPIRIN 81 MG PO SCH (07:43)
--- NOTE | 2023-09-16 07:55 | MR ---
EXAMINATION TYPE: MR brain wo con DATE OF EXAM: 09/16/2023 COMPARISON: 09/15/2023 CT brain HISTORY: Amnesia, R/O CVA CONTRAST: Performed utilizing 0 mL intravenous Gadavist gadolinium contrast. TECHNIQUE: Multiplanar, multiecho imaging on a 3.0 Roz magnet is performed through the brain. Stud y is performed within 24 hours of arrival to the hospital. There is some limitation due to motion art ifact from coughing during the exam. Fast protocol was utilized. The craniovertebral junction is normal. The pituitary is normal. Diffusion-weighted imaging is performed. No abnormal hyperintensity is present to suggest an acute i ntracranial infarct or acute ischemic change. There are a few deep white matter punctate hyperintensities on inversion recovery weighted sequences. These are nonspecific but can be related to chronic white matter ischemic change. Ventricles and sulci are appropriate for the patient age. Mucosal thickening is within the bilateral maxillary sinuses. Air-fluid levels present. There is muco marsha thickening throughout ethmoid air cells. Mild mucosal thickening within sphenoid sinuses and mini mal mucosal thickening is within the frontal sinuses. Correlate for acute sinusitis. IMPRESSION: 1. Punctate deep white matter changes are nonspecific but can be related to microvascular ischemic ch yeimy.
--- NOTE | 2023-09-16 08:41 | P.CNNES ---
History of Present Illness Consult date: 09/15/23 Requesting physician: Da Wooten Reason for Consult: Altered mental status History of Present Illness: Patient is a 63-year-old female came to the hospital by ambulance today at 10:37 AM for difficulty breathing. Patient states that yesterday morning she couldn't breathe, had difficulty walking up and down steps due to difficulty breathing and then she passed out, and fell out in the porch. She remembers that when she passed out, it was light out, but when she came to, it was "pitch black" she does not know how long she was out for. She crawled in the house. She lives alone. This is the first time ever it happened. They called the ambulance and patient was brought to the hospital. Patient denies any strokelike symptoms. Patient states she is still having problems with the memory. As per EMS flow sheet, when that if, patient was complaining of flulike symptoms including nausea, vomiting, diarrhea, nonproductive cough, respiratory distress, wheezing for 2 days. Patient was alert and oriented 3 with GCS of 14 and speaking complete sentences. Patient states "I think I'm confused, I remember waking up outside yesterday on [employer] and don't remember passing out but I guess I must have". Patient denies taking blood thinners or having any head, neck or back pain. No signs of injury or trauma. Patient appears to be diaphoretic with audible wheezing. Patient has history of asthma and COPD. Patient's vitals at the scene was blood pressure 114/76, pulse rate 114, temperature 97.8 and blood sugar 124. Blood test shows normal CBC, PT/PTT, normal CMP, ammonia, UA showed positive nitrite, small amount of leukocyte esterase, 6 WBCs and many bacteria. EKG shows sinus rhythm with sinus arrhythmia. Chest x-ray showed COPD. No acute process. CT head revealed no acute intracranial CT abnormality. I personally reviewed CT head, agree with the findings. Patient currently takes multivitamins, Elderberry, vitamin C. Patient does not take any antiplatelet medication at home. Patient has history of smoking one third pack per day for 40 years Denies any alcohol use. She smokes marijuana "little bit". He denies hypertension or diabetes. Denies any history of seizures. Review of Systems Constitutional: Reports chills, Reports fever Eyes: bilateral blurred vision (beccause not feeling good), denies diplopia, denies pain, denies loss of vision Ears: left: decreased hearing (like fluid in the left ear), deny: ear discharge Ears, nose, mouth and throat: Reports headache, Denies sore throat (gone now) Cardiovascular: Reports chest pain, Reports shortness of breath Respiratory: Reports cough, Denies excessive sputum Gastrointestinal: Reports abdominal pain, Reports diarrhea (had yesterday), Reports nausea, Reports vomiting Genitourinary: Reports stress incontinence, Denies dysuria, Denies hematuria, Denies urge incontinence Musculoskeletal: Reports low back pain, Reports neck pain Integumentary: Denies pruritus, Denies rash Neurological: Reports as per HPI Psychiatric: Denies anxiety, Denies depression Hematologic/Lymphatic: Denies easy bleeding, Denies easy bruising Past Medical History Past Medical History: Asthma, CVA/TIA, Fibromyalgia Additional Past Medical History / Comment(s): glaucoma, TIA-2013 History of Any Multi-Drug Resistant Organisms: None Reported Past Surgical History: No Surgical Hx Reported, Hysterectomy, Tonsillectomy Past Anesthesia/Blood Transfusion Reactions: Motion Sickness Past Psychological History: Anxiety Smoking Status: Current every day smoker Past Alcohol Use History: None Reported Past Drug Use History: Marijuana - Past Family History Mother Additional Family Medical History / Comment(s): carotid stenosis Brother(s) Family Medical History: Cancer, CVA/TIA Additional Family Medical History / Comment(s): brother had throat and bladder cancer Medications and Allergies Home Medications Medication Instructions Recorded Confirmed Type Multivitamins, Thera [Multivitamin 1 tab PO DAILY 08/03/15 09/15/23 History (formulary)] Acetaminophen/Diphenhydramine 1 tab PO HS 09/15/23 09/15/23 History [Tylenol PM 500-25mg] Ascorbic Acid [Vitamin C] 1,000 mg PO DAILY 09/15/23 09/15/23 History Elderberry Fruit [Elderberry] 350 mg PO DAILY 09/15/23 09/15/23 History Allergies Allergy/AdvReac Type Severity Reaction Status Date / Time No Known Allergies Allergy Verified 09/15/23 12:55 Physical Examination - Vital Signs Vital Signs: Vital Signs Temp Pulse Resp BP Pulse Ox 09/15/23 14:35 94 L 09/15/23 14:30 18 111/83 94 L 09/15/23 14:22 98.7 F 81 18 111/83 90 L 09/15/23 14:00 77 18 106/79 91 L 09/15/23 13:30 67 18 100/90 91 L 09/15/23 13:00 66 18 109/73 89 L 09/15/23 12:30 69 18 128/88 90 L 09/15/23 12:00 74 22 113/71 95 09/15/23 11:30 71 22 132/83 93 L 09/15/23 11:00 71 22 156/92 95 09/15/23 10:44 76 22 156/92 97 09/15/23 10:39 98.4 F 78 20 142/101 96 Intake and Output 09/15/23 09/15/23 09/15/23 06:59 14:59 22:59 Other: Weight 45.359 kg Patient is a late middle aged female, in no acute distress. Patient is alert awake oriented to time place and person. Patient knows it is September and the year is 2023 and that she is in [facility] in [place] and name of the current president Mr. Cee. Speech and language functions are normal. Patient can name and repeat very well. No aphasia or dysarthria. Attention, concentration and fund of knowledge is adequate. On cranial nerve examination, pupils are equal, round and reacting to light, visual dupree are full on confrontation, with no neglect on double simultaneous stimulation. Extraocular muscles are intact with no nystagmus. Face is symmetric, tongue protrudes to the midline. Palatal elevation and sensation normal, hearing and shoulder shrug normal, facial sensation normal. On muscle strength testing, there is no pronator drift and the strength is normal in arms and legs distally and proximally. Deep tendon reflexes are symmetric 1+ and plantars downgoing. Sensory to touch is equal with no neglect on double simultaneous stimulation. Cerebellar function showed no ataxia for [id number] testing. No dysdiadochokinesia. No ataxia for [id number] testing on either side. Tone and bulk of muscles normal. Gait deferred.. On general examination, there is no carotid bruit or murmur, S1-S2 audible. Chest is clear on consultation. Abdomen is soft nontender. No organomegaly, bowel sounds present. Peripheral pulses are present. No peripheral edema. Results - Laboratory Findings CBC and BMP: 09/16/23 06:18 09/16/23 06:18 Abnormal Lab Findings: Abnormal Labs 09/15/23 09/15/23 09/15/23 10:51 11:06 11:06 VBG HCO3 Chloride 108 H Carbon Dioxide 19 L Glucose 116 H POC Glucose (mg/dL) 111 H Urine Protein Urine Ketones Urine Blood Urine Nitrite Ur Leukocyte Esterase Urine WBC Urine Bacteria Urine Mucus U Marijuana (THC) Screen RSV (PCR) Detected A 09/15/23 09/15/23 09/15/23 11:06 14:05 14:05 VBG HCO3 23 L Chloride Carbon Dioxide Glucose POC Glucose (mg/dL) Urine Protein Trace H Urine Ketones 2+ H Urine Blood Small H Urine Nitrite Positive H Ur Leukocyte Esterase Small H Urine WBC 6 H Urine Bacteria Many H Urine Mucus Moderate H U Marijuana (THC) Screen Detected H RSV (PCR) Assessment and Plan Assessment: * Syncopal spell, with prolonged period of amnesia, unclear cause. Possibly multifactorial due to metabolic reasons mentioned below. * Acute asthma exacerbation. * Acute RSV infection * Possible UTI * Prolonged amnesia, rule out stroke/TIA, rule out seizure versus arrhythmia. * Tobacco use * Marijuana use Plan: * MRI of the brain evaluate for acute stroke * Carotid Doppler revealed less than 50% stenosis of bilateral carotid bifu rcations. Antegrade flow in both vertebral arteries. * 2-D echo pending, rule out cardiac cause, rule out embolic source * EEG, rule out epileptiform activity * Other medical management as per IM, and other specialties. * Recommended complete tobacco cessation. * Neurology will follow. Thank you for the consult.
[2023-09-16] MEDS: SYMBICORT 160-4.5 MCG INHALER INHALATION SCH ×2 (08:47→21:56)
[2023-09-16] MEDS: IPRATROPIUM-ALBUTEROL 3 ML NEB INHALATION SCH ×4 (08:47→21:56)
--- NOTE | 2023-09-16 11:03 | EEG ---
ELECTROENCEPHALOGRAM REPORT PREAMBLE: This is a 63-year-old female with syncope with prolonged amnesia. This study is performed to rule out any epileptiform activity. EEG FINDINGS: This is a 21-channel digital EEG recorded with video component, utilizing 10/20 international system with referential and bipolar montages. Background consists of well developed, well regulated moderate voltage activity in 9 hertz alpha. Background is posterior dominant and reactive to eye opening and closing. Photic stimulation and hyperventilation were not done. Drowsiness was seen with appearance of bilaterally symmetric theta frequency rhythm. Deeper stages of sleep were not seen. No focal or generalized epileptiform activity was seen. IMPRESSION: This is a normal awake and drowsy EEG. No focal, lateralized or epileptiform activity was seen. MMODL / IJN: [id number] /
--- NOTE | 2023-09-16 11:38 | CA ---
Transthoracic Echo Report Name: Viviane Neil Age: 63 Gender: F : 1960 Exam Date: 09/16/2023 09:21 Exam Location: [facility] Ht (in): 62 Wt (lb): 100 Ordering Physician: Car Buitrago MD Attending/Referring Phys: Primer Powder Blender Wet Vinay Dodge Procedure CPT: Indications: CP Cardiac Hx: Technical Quality: Good Contrast 1: Total Dose (mL): Contrast 2: Total Dose (mL): MEASUREMENTS (Male / Female) Normal Values 2D ECHO LV Diastolic Diameter PLAX 4.8 cm 4.2 - 5.9 / 3.9 - 5.3 cm LV Systolic Diameter PLAX 2.9 cm IVS Diastolic Thickness 0.7 cm 0.6 - 1.0 / 0.6 - 0.9 cm LVPW Diastolic Thickness 0.8 cm 0.6 - 1.0 / 0.6 - 0.9 cm LV Relative Wall Thickness 0.3 RV Internal Dim ED PLAX 2.7 cm LVOT Diameter 1.8 cm Aortic Root Diameter 2.8 cm LA Systolic Diameter LX 2.1 cm 3.0 - 4.0 / 2.7 - 3.8 cm LV Diastolic Volume MOD BP 45.2 cm??? 67 - 155 / 56 - 104 cm??? LV Systolic Volume MOD BP 15.7 cm??? - 58 / 19 - 49 cm??? LV Ejection Fraction MOD BP 65.2 % >= 55 % LV Cardiac Index MOD BP 1178.1 cm???/min???m??? LV Diastolic Volume MOD 4C 49.7 cm??? LV Systolic Volume MOD 4C 18.8 cm??? LV Ejection Fraction MOD 4C 62.1 % LV Cardiac Index MOD 4C 1232.3 cm???/min???m??? LV Diastolic Length 4C 6.4 cm LV Systolic Length 4C 5.2 cm LV Diastolic Volume MOD 2C 34.2 cm??? LV Systolic Volume MOD 2C 12.6 cm??? LV Ejection Fraction MOD 2C 63.3 % LV Cardiac Index MOD 2C 865.7 cm???/min???m??? LV Diastolic Length 2C 5.3 cm LV Systolic Length 2C 5.5 cm LA Volume 20.7 cm??? 18 - 58 / 22 - 52 cm??? LA Volume Index 14.7 cm???/m??? 16 - 28 cm???/m??? DOPPLER AV Peak Velocity 109.1 cm/s AV Peak Gradient 4.8 mmHg MV Peak Velocity 81.5 cm/s MV Peak Gradient 2.7 mmHg MV Mean Velocity 35.5 cm/s MV Mean Gradient 0.6 mmHg MV Velocity Time Integral 29.2 cm MR Peak Velocity 434.5 cm/s MR Peak Gradient 75.5 mmHg Mitral E Point Velocity 66.9 cm/s Mitral A Point Velocity 54.8 cm/s Mitral E to A Ratio 1.2 MV Deceleration Time 228.1 ms MV E' Velocity 9.7 cm/s Mitral E to MV E' Ratio 6.9 TR Peak Velocity 218.1 cm/s TR Peak Gradient 19.0 mmHg Right Ventricular Systolic Press 24.6 mmHg FINDINGS Left Ventricle Normal LV size and wall thickness. Left ventricular ejection fraction is estimated at 50-55 %. Right Ventricle Normal right ventricular size. RVSP= 35mmHg. Right Atrium Normal right atrial size. Left Atrium Normal left atrial size. Mitral Valve Mild posterior leaflet prolapse best seen in 4 chamber view. Mild MR. Aortic Valve Trileaflet aortic valve. No aortic stenosis. No aortic regurgitation. Tricuspid Valve Structurally normal tricuspid valve. Mild TR. Pulmonic Valve Pulmonic valve not well visualized. Trace PI. Pericardium Normal pericardium. Aorta Normal size aortic root. CONCLUSIONS Normal LV systolic function Mitral valve prolapse with mild mitral regurgitation Previewed by: Dr. Julio Maloney MD (Electronically Signed) Final Date: 16 September 2023 11:37
--- NOTE | 2023-09-16 13:43 | P.PN ---
Subjective Progress Note Date: 09/16/23 Hospital Course: 63-year-old female with history of nicotine dependence presenting with altered mentation and shortness of breath. In the ED, patient was hypoxic, VBG showed pH of 7.28, pCO2 39, bicarb 19, lactate 1.7, RSV positive. Chest x-ray showed no opacities. EKG showed sinus arrhythmia, slight ST depressions. Brain CT negative for any acute findings. Urinalysis positive for nitrite, small leukocyte esterase patient admitted for hypoxic respiratory failure in the setting of RSV, likely COPD exacerbation. Mentation is improved. Neurology and pulmonology following. Patient on bronchodilators, and IV steroids. Subjective: Patient seen and examined at bedside. No acute events overnight. Claims that she is feeling a lot better however still having some shortness of breath and cough. Pertinent positives and negatives as discussed above, a complete review of sy stems was performed and all other systems are negative. Vitals Signs Reviewed. General: nontoxic, no distress, appears at stated age Derm: warm, dry Head: atraumatic, normocephalic, symmetric Eyes: EOMI, no lid lag, anicteric sclera Mouth: no lip lesion, mucus membranes moist Cardiovascular: S1S2 reg, no murmur Lungs: Bilateral expiratory wheezing, no accessory muscle use on supplemental oxygen Abdominal: soft, nontender to palpation, no guarding, no appreciable organomegaly Ext: no gross muscle atrophy, no edema, no contractures Neuro: CN II-XI grossly intact, no focal neuro deficits Psych: Alert, oriented, appropriate affect Data Reviewed Today: Pertinent Labs: WBC 9.2, hemoglobin 13.1, bicarb 23, creatinine 0.69, glucose 132 Imaging: Echocardiogram showed normal LV systolic function, mitral valve prolapse with mild mitral regurgitation. Brain MRI did not show any acute proce ss. EEG did not show any epileptiform discharges. Carotid ultrasound showed less than 50% stenosis bilaterally at carotid bifurcation. Assessment and Plan: Active: Acute hypoxic respiratory failure RSV pneumonia Acute asthma/COPD exacerbation Possible Urinary tract infection Nicotine dependence Acute metabolic encephalopathy, resolved History of CVA/TIA Metabolic acidosis, resolved -Pulmonology note reviewed, Symbicort twice a day, DuoNeb 4 times a day, and when necessary, Solu-Medrol IV 60 every 6 hours, monitor mentation -Counseled regarding smoking cessation -Nicotine patch 14 mg daily -Encephalopathy likely in the setting of hypoxia -Neurology following -Patient started on aspirin 81 mg daily -Patient does not have any urinary symptoms and mentation has improved, hold off antibiotics for now DVT ppx: Lovenox Code status: FC Anticipated discharge place: Pending clinical course Anticipated discharge time: Pending clinical course Objective - Vital Signs Vital signs: Vital Signs Temp 97.4 F L 09/16/23 09:10 Pulse 74 09/16/23 12:03 Resp 16 09/16/23 09:10 BP 118/68 09/16/23 11:56 Pulse Ox 98 09/16/23 11:56 FiO2 Intake & Output 09/15/23 09/16/23 09/16/23 18:59 06:59 18:59 Weight 45.359 kg 45.359 kg Other: # Voids 3 2 - Labs CBC & Chem 7: 09/16/23 06:18 09/16/23 06:18 Labs: Abnormal Lab Results - Last 24 Hours (Table) 09/15/23 09/15/23 09/16/23 Range/Units 14:05 14:05 06:18 BUN 20 H (7-17) mg/dL Glucose 132 H (74-99) mg/dL Urine Protein Trace H (Negative) Urine Ketones 2+ H (Negative) Urine Blood Small H (Negative) Urine Nitrite Positive H (Negative) Ur Leukocyte Esterase Small H (Negative) Urine WBC 6 H (0-5) /hpf Urine Bacteria Many H (None) /hpf Urine Mucus Moderate H (None) /hpf U Marijuana (THC) Screen Detected H (NotDetected)
[2023-09-16 14:15] VITALS: BMI 18.3
[2023-09-16] MEDS ORDERED: BENZONATATE 100 MG CAP PO PRN (14:22)
[2023-09-16 15:58] LABS: Glucose,Whole Blood 129 mg/dL (70-110)
[2023-09-16] MEDS ORDERED: LORazepam 2 MG/ML INJ IV STA (16:02)
--- NOTE | 2023-09-16 16:58 | XR ---
EXAMINATION TYPE: XR chest 1V DATE OF EXAM: 09/16/2023 4:20 PM CLINICAL INDICATION:Female, 63 years old with history of shortness of breath; [facility] COMPARISON: Chest radiographs from 09/15/2023. TECHNIQUE: XR chest 1V Frontal view of the chest. FINDINGS: Lungs/Pleura: There is flattening of the diaphragm with increased lucency of the lungs. No evidence o f pneumothorax, pleural effusion or focal consolidation. Pulmonary vascularity: Unremarkable. Heart/mediastinum: Cardiomediastinal silhouette is unremarkable. Musculoskeletal: No acute osseous pathology. Other findings: None IMPRESSION: 1. No acute cardiopulmonary disease process. 2. COPD changes.
[2023-09-16] MEDS: ACETAMINOPHEN TAB 325 MG TAB PO PRN (20:29)
[2023-09-16] MEDS: MELATONIN 3 MG TABLET PO PRN (20:29)
[2023-09-16] MEDS: SODIUM CHLORIDE 0.9% 1,000 ML IV SCH (20:37)
[2023-09-17] MEDS: methylPREDNISolone SOD SUCCI 125 MG/2 ML VIAL IV SCH ×4 (05:31→23:07)
[2023-09-17] MEDS: ACETAMINOPHEN TAB 325 MG TAB PO PRN ×2 (05:40→22:03)
[2023-09-17] MEDS: SYMBICORT 160-4.5 MCG INHALER INHALATION SCH ×2 (08:11→20:23)
[2023-09-17] MEDS: IPRATROPIUM-ALBUTEROL 3 ML NEB INHALATION SCH ×4 (08:11→20:22)
[2023-09-17] MEDS: PANTOPRAZOLE 40 MG TABLET PO SCH (09:25)
[2023-09-17] MEDS: ASPIRIN 81 MG PO SCH (09:25)
[2023-09-17] MEDS: NICOTINE 14MG/24HR PATCH TRANSDERM SCH (09:26)
[2023-09-17] MEDS: ENOXAPARIN 40 MG/0.4 ML SYRINGE SQ SCH (09:26)
--- NOTE | 2023-09-17 11:17 | P.PN ---
Subjective Progress Note Date: 09/16/23 Patient was seen for a follow-up. Patient complains of difficulty breathing. Offers no neurological symptoms. No speech difficulty. Objective - Vital Signs Vital signs: Vital Signs Temp 98.4 F 09/16/23 12:47 Pulse 73 09/16/23 12:47 Resp 15 09/16/23 12:47 BP 114/69 09/16/23 12:47 Pulse Ox 96 09/16/23 12:47 FiO2 Intake & Output 09/15/23 09/16/23 09/16/23 18:59 06:59 18:59 Weight 45.359 kg 45.359 kg 45.359 kg Other: # Voids 3 2 - Exam Patient appears to be in respiratory distress because of difficulty breathing. Neurologically patient is stable. - Labs CBC & Chem 7: 09/16/23 06:18 09/16/23 06:18 Labs: Abnormal Lab Results - Last 24 Hours (Table) 09/16/23 Range/Units 06:18 BUN 20 H (7-17) mg/dL Glucose 132 H (74-99) mg/dL Assessment and Plan Assessment: * Syncopal spell, with prolonged period of amnesia, unclear cause. Possibly multifactorial due to metabolic reasons mentioned below. * Acute asthma exacerbation. * Acute RSV infection * Possible UTI * Prolonged amnesia, CVA ruled out. * Tobacco use * Marijuana use Plan: * MRI of the brain without contrast revealed punctate deep white matter changes are nonspecific, but can be related to microvascular ischemic change. I darwin pizarroly reviewed MRI, agree with the findings. No acute ischemic stroke. * Carotid Doppler revealed less than 50% stenosis of bilateral carotid bifurcations. Antegrade flow in both vertebral arteries. * 2-D echo revealed normal left ventricular systolic function, mitral valve prolapse with mild MR. Left atrial size is normal. * EEG,was normal awake and drowsy. No focal, lateralized or epileptiform activity was seen. * B12 867, folate 11.7, TSH normal 0.391 * Recommended complete tobacco cessation. * Patient has been started on aspirin 81 mg daily. * DVT prophylaxis: Patient on Lovenox 40 mg subcu daily. * Other medical management as per IM, and other specialties. * Neurologically, no other workup indicated.
--- NOTE | 2023-09-17 12:07 | P.PN ---
Subjective Progress Note Date: 09/17/23 Hospital Course: 63-year-old female with history of nicotine dependence presenting with altered mentation and shortness of breath. In the ED, patient was hypoxic, VBG showed pH of 7.28, pCO2 39, bicarb 19, lactate 1.7, RSV positive. Chest x-ray showed no opacities. EKG showed sinus arrhythmia, slight ST depressions. Brain CT negative for any acute findings. Urinalysis positive for nitrite, small leukocyte esterase patient admitted for hypoxic respiratory failure in the setting of RSV, likely COPD exacerbation. Mentation is improved. Neurology and pulmonology following. Echocardiogram showed normal LV systolic function, mitral valve prolapse with mild mitral regurgitation. Brain MRI did not show any acute process. EEG did not show any epileptiform discharges. Carotid ultrasound showed less than 50% stenosis bilaterally at carotid bifurcation. Patient on bronchodilators, and IV steroids. Subjective: Patient seen and examined at bedside. No acute events overnight. Yesterday evening, patient did have an episode of panic attack, with worsening respiratory status. She is feeling a lot better today. Pertinent positives and negatives as discussed above, a complete review of systems was performed and all other systems are negative. Vitals Signs Reviewed. General: nontoxic, no distress, appears at stated age Derm: warm, dry Head: atraumatic, normocephalic, symmetric Eyes: EOMI, no lid lag, anicteric sclera Mouth: no lip lesion, mucus membranes moist Cardiovascular: S1S2 reg, no murmur Lungs: Bilateral mild expiratory wheezing, no accessory muscle use on asencio pplemental oxygen Abdominal: soft, nontender to palpation, no guarding, no appreciable organomegaly Ext: no gross muscle atrophy, no edema, no contractures Neuro: CN II-XI grossly intact, no focal neuro deficits Psych: Alert, oriented, appropriate affect Data Reviewed Today: Pertinent Labs: No new labs Imaging: Chest x-ray independently interpreted from yesterday, showed no opacities and EKG independently interpreted from yesterday showed normal sinus rhythm Assessment and Plan: Patient needs close monitoring, prognosis guarded. Active: Acute hypoxic respiratory failure RSV pneumonia Acute asthma/COPD exacerbation Possible Urinary tract infection Nicotine dependence Acute metabolic encephalopathy, resolved History of CVA/TIA Metabolic acidosis, resolved Anxiety -Pulmonology following, Symbicort twice a day, DuoNeb 4 times a day, and when necessary, Solu-Medrol IV 60 every 6 hours, monitor mentation -Counseled regarding smoking cessation -Nicotine patch 14 mg daily -Encephalopathy likely in the setting of hypoxia -Neurology following, on aspirin 81 mg daily, no further neurologic workup -Patient does not have any urinary symptoms and mentation has improved, hold off antibiotics for now DVT ppx: Lovenox Code status: Anticipated discharge place: Pending clinical course Anticipated discharge time: Pending clinical course Objective - Vital Signs Vital signs: Vital Signs Temp 98.1 F 09/17/23 07:45 Pulse 76 09/17/23 11:44 Resp 14 09/17/23 07:45 BP 125/74 09/17/23 07:45 Pulse Ox 97 09/17/23 07:45 FiO2 Intake & Output 09/16/23 09/17/23 09/17/23 18:59 06:59 18:59 Weight 45.359 kg Other: # Voids 2 2 - Labs CBC & Chem 7: 09/16/23 06:18 09/16/23 06:18 Labs: Abnormal Lab Results - Last 24 Hours (Table) 09/16/23 Range/Units 15:56 POC Glucose (mg/dL) 129 H (70-110) mg/dL
--- NOTE | 2023-09-17 14:28 | P.PN ---
Subjective Progress Note Date: 09/17/23 I am seeing this patient in consultation today 09/16/2023 after she presented to the hospital yesterday morning chiefly for acute dyspnea and confusion. Patient is a 63-year-old white female past medical history significant for asthma, fibromyalgia, and previous CVA/TIA. She is a current every day smoker. Her primary care provider is Dr. Mejia. Patient is currently sitting up in bed, on 2 L/m nasal cannula, in no acute distress. She states that she does not remember much of what happened prior to coming in. She does state that she's been short of breath for approximately 4-5 days. She was around her 2 nieces, that recently ended up testing positive for RSV. Patient states that with her shortness breath, she's had an associated persistent nonproductive cough, wheezing, severe chest tightness. She states she has a history of asthma. Never been diagnosed with COPD. Although, she does continue to smoke. She is normally maintained on a combination of Advair and when necessary albuterol rescue inhaler. Patient did have positive urinalysis on admission. When questioned, the patient admits suprapubic tenderness and urinary frequency. Or hematuria Denies any burning or dysuria. No flank pain or hematuria. CBC on arrival was unremarkable. BMP on arrival: Sodium 141, potassium 4.1, chloride 108, serum bicarb 19, BUN 13, creatinine 0.74, glucose 117. Troponins less than 0.012. Procalcitonin level was low. Patient did test positive for RSV. She is currently afebrile. Vital signs are stable. the patient is seen today 09/17/2023 in follow-up on the regular medical floor. She is currently resting comfortably in bed. Awake and alert in no acute distress. Feeling a bit better today compared to yesterday. Still requiring 4 L nasal cannula to maintain O2 saturation in the 90s. Normal saline at 20 ML's per hour. She did have an episode of shortness of breath, dizziness and lightheadedness while up in a chair yesterday. urology was consulted. Carotid Doppler revealed less then 50% stenosis bilaterally. EEG revealed no focal lateralizing or epileptiform activity. Normal EEG. MRI of the brain revealed punctate deep white matter changes nonspecific. Chest x-ray continues to show no acute pulmonary process. Evidence of COPD.she is continued on DuoNeb inha lations, Symbicort, Solu-Medrol. NicoDerm patch in place. Lovenox for DVT prophylaxis. Procalcitonin was negative at 0.06. Objective - Vital Signs Vital signs: Vital Signs Temp 98.0 F 09/17/23 12:17 Pulse 71 09/17/23 12:17 Resp 17 09/17/23 12:17 BP 126/50 09/17/23 12:17 Pulse Ox 93 L 09/17/23 12:17 FiO2 Intake & Output 09/16/23 09/17/23 09/17/23 18:59 06:59 18:59 Weight 45.359 kg Other: # Voids 2 2 - Exam GENERAL EXAM: Alert, 63-year-old female, on 4 L nasal cannula, with a nonproductive cough, comfortable in no apparent distress. HEAD: Normocephalic and atraumatic EYES: Normal reaction of pupils, equal size. NOSE: Clear with pink turbinates. THROAT: No erythema or exudates. NECK: No masses, no JVD. CHEST: No chest wall deformity. LUNGS: Equal air entry with significant expiratory wheezing. Bronchospastic cough. No conversational dyspnea. CVS: S1 and S2 normal with no audible murmur, regular rhythm. No extra heart sounds ABDOMEN: No hepatosplenomegaly, active bowel sounds, no guarding or rigidity. SPINE: No scoliosis or deformity SKIN: No rashes CENTRAL NERVOUS SYSTEM: No focal deficits, tone is normal in all 4 extremities. EXTREMITIES: There is no peripheral edema, clubbing, or cyanosis. Peripheral pulses are intact. - Labs CBC & Chem 7: 09/16/23 06:18 09/16/23 06:18 Labs: Abnormal Lab Results - Last 24 Hours (Table) 09/16/23 Range/Units 15:56 POC Glucose (mg/dL) 129 H (70-110) mg/dL Assessment and Plan Assessment: Acute asthma exacerbation secondary to acute RSV infection, chest x-ray does not show any focal infiltrates or evidence of pneumonia. There is significant hyperinflation and flattened diaphragm with evidence of COPD Acute hypoxemic respiratory failure, currently on 4 L/m nasal cannula, secondary to above Chronic ongoing tobacco dependence Suspected urinary tract infection Acute metabolic encephalopathy, probably related to hypoxia and above, possibly related to marijuana use. MRI of the brain, EEG, carotid Dopplers within normal limits History of CVA/TIA History of fibromyalgia Plan: The patient was seen and evaluated Chest x-ray, MRI of the brain, carotid Dopplers, EEG, labs and medications reviewed Titrate down the FiO2 as tolerated Continue bronchodilators, steroids Advised against marijuana use Educated regarding importance of complete smoking cessation NicoDerm patch remains in place We will continue to follow I have personally seen and examined the patient, performed the documentation and the assessment and plan as written. Number of minutes spent on the visit: 10.
[2023-09-17] MEDS: SODIUM CHLORIDE 0.9% 1,000 ML IV SCH (22:03)
[2023-09-17] MEDS: MELATONIN 3 MG TABLET PO PRN (22:06)
--- NOTE | 2023-09-18 05:34 | P.PN ---
Subjective Progress Note Date: 09/17/23 Patient was seen for a follow-up. Patient states her difficulty breathing has improved. Patient still appears to have slight difficulty in breathing. Offers no neurological symptoms. No speech difficulty. Objective - Vital Signs Vital signs: Vital Signs Temp 98.0 F 09/17/23 12:17 Pulse 71 09/17/23 12:17 Resp 17 09/17/23 12:17 BP 126/50 09/17/23 12:17 Pulse Ox 93 L 09/17/23 12:17 FiO2 Intake & Output 09/16/23 09/17/23 09/17/23 18:59 06:59 18:59 Weight 45.359 kg Other: # Voids 2 2 - Exam Patient appears to be slightly more comfortable as compared to yesterday. She still slightly short of breath. Neurologically patient is stable. - Labs CBC & Chem 7: 09/16/23 06:18 09/16/23 06:18 Labs: Abnormal Lab Results - Last 24 Hours (Table) 09/16/23 Range/Units 15:56 POC Glucose (mg/dL) 129 H (70-110) mg/dL Assessment and Plan Assessment: * Syncopal spell, with prolonged period of amnesia, unclear cause. Possibly multifactorial due to metabolic reasons mentioned below. * Acute asthma exacerbation. * Acute RSV infection * Possible UTI * Prolonged amnesia, CVA ruled out. * Tobacco use * Marijuana use Plan: * MRI of the brain without contrast revealed punctate deep white matter changes are nonspecific, but can be related to microvascular ischemic change. I personally reviewed MRI, agree with the findings. No acute ischemic stroke. * Carotid Doppler revealed less than 50% stenosis of bilateral carotid bifurcations. Antegrade flow in both vertebral arteries. * 2-D echo revealed normal left ventricular systolic function, mitral valve prolapse with mild MR. Left atrial size is normal. * EEG,was normal awake and drowsy. No focal, lateralized or epileptiform activity was seen. * B12 867, folate 11.7, TSH normal 0.391 * Recommended complete tobacco cessation. * Patient has been started on aspirin 81 mg daily. * DVT prophylaxis: Patient on Lovenox 40 mg subcu daily. * Other medical management as per IM, and other specialties. * Neurologically, no other workup indicated. Neurology will sign off. Please reconsult neurology if any concerns.
[2023-09-18] MEDS: methylPREDNISolone SOD SUCCI 125 MG/2 ML VIAL IV SCH (06:50)
[2023-09-18] MEDS: PANTOPRAZOLE 40 MG TABLET PO SCH (06:51)
[2023-09-18] MEDS: ENOXAPARIN 40 MG/0.4 ML SYRINGE SQ SCH (07:45)
[2023-09-18] MEDS: ASPIRIN 81 MG PO SCH (07:45)
[2023-09-18] MEDS: NICOTINE 14MG/24HR PATCH TRANSDERM SCH (07:45)
[2023-09-18] MEDS: SYMBICORT 160-4.5 MCG INHALER INHALATION SCH (08:02)
[2023-09-18] MEDS: IPRATROPIUM-ALBUTEROL 3 ML NEB INHALATION SCH ×3 (08:02→15:29)
[2023-09-18] MEDS ORDERED: predniSONE 20 MG TAB PO SCH (09:00)
--- NOTE | 2023-09-18 09:17 | CDI ---
Documentation Clarification Form Date: 09/18/2023 08:27:09 AM From: Renetta Cordoba RN CCDS Phone: [phone] Admit Date: 09/15/2023 01:03:00 PM Patient Name: Viviane Neil Visit Number: [id number] Discharge Date: ATTENTION: The Clinical Documentation Specialists (CDI) and [facility] Coding Staff appreciate your assistance in clarifying documentation. Please respond to the clarification below the line at the bottom and electronically sign. The CDI & [facility] Coding staff will review the response and follow-up if needed. Please note: Queries are made part of the Legal Health Record. If you have any questions, please contact the author of this message via ITS. Dr. Irineo Ocampo The Registered Dietitian assessment on 09/16 indicates this patient is underweight. Based on this information and the findings below, is there an additional diagnosis that is clinically appropriate for this patient? History/Risk Factors: 63-year-old female presents to the ED for being short of breath and confused. Medical History: Asthma, smoker for many years 1/4 pack a day and COPD. 09/15, H&P Clinical Indicators: RD Consult Assessment: Current BMI: 18.3, Hgt 5ft 2in Wgt 45.359kg Body mass index classification: Underweight Estimated nutritional needs: Kcals: [id number] Kcal Protein: 36-45 grams/day The patient is underweight related to suboptimal energy intake. Treatment: Regular healthful diet, Nutritional education, Monitoring Nutritional intake. Supplements: Declined supplement patient stated it upsets her stomach Is there an additional diagnosis that is clinically appropriate for this patient? [ ] Mild Protein-Calorie Malnutrition [ ] Moderate Protein-Calorie Malnutrition [ x ] No additional diagnosis/Not clinically significant [ ] Other condition, please specify [ ] Unable to Determine Reference: Using the ASPEN Guidelines, Undernutrition (Malnutrition) is characterized by at least two of the following six findings. The severity can be determined based on the criteria listed below. Malnutrition Characteristics for Moderate and Severe Malnutrition Type of Malnutrition Acute Illness or Injury Chronic Illness Degree of Malnutrition Non-severe (moderate) Malnutrition Severe Malnutrition Non-severe (moderate) Malnutrition Severe Malnutrition Energy Intake <75% for >7 days = 50% for = 5 days <75% for = 1 month =75% for = 1 month Weight Loss 1-2% in one week, 5% in 1 month, 7.5% in 3 months 2% in one week, >5% in 1 month, >7.5% in 3 months 5% in one month, 7.5% in 3 months, 10% in 6 months, 20% in 1 year >5% in one month, >7.5% in 3 months, >10% in 6 months, >20% in 1 year Body Fat Wasting Mild Moderate Mild Severe Muscle Wasting Mild Moderate Mild Severe Presence of Edema Mild Moderate to Severe Mild Severe [employer] Member Strength Not applicable Measurably Reduced Not applicable Measurably Reduced Source: Rebecca ClineV, Anthony P, Thompson G, et al. Consensus statement: Academy of Nutrition and Dietetics and [place] Society for Parenteral and Enteral Nutrition: characteristics recommended for the identification and documentation of adult malnutrition (undernutrition).HOLLY Cline Parenter Enteral Nutr. 2012;36(3):275-283. (Template Last Revised: March 2023) MTDD
--- NOTE | 2023-09-18 13:28 | P.DS ---
Providers Date of admission: 09/15/23 13:03 Expected date of discharge: 09/18/23 Attending physician: Anabella Merlos DO Consults: 09/15/23 13:02 Consult Physician Routine Consulting Provider: You Bearden Consult Reason/Comments: ams Do you want consulting provider notified?: Yes 09/15/23 14:04 Consult Physician Routine Consulting Provider: oLgan Galeano Consult Reason/Comments: COPD exacerbation, RSV Do you want consulting provider notified?: Yes Primary care physician: [facility] Course: Discharge Diagnosis: Acute hypoxic respiratory failure RSV pneumonia Acute COPD exacerbation Nicotine dependence Acute metabolic encephalopathy History of CVA/TIA Metabolic acidosis Anxiety Hospital Course: 63-year-old female with history of nicotine dependence presenting with altered mentation and shortness of breath. In the ED, patient was hypoxic, VBG showed pH of 7.28, pCO2 39, bicarb 19, lactate 1.7, RSV positive. Chest x-ray showed no opacities. EKG showed sinus arrhythmia, slight ST depressions. Brain CT negative for any acute findings. Urinalysis positive for nitrite, small leukocyte esterase. Patient admitted for hypoxic respiratory failure in the setting of RSV, likely COPD exacerbation. Mentation is improved. Neurology and pulmonology following. Echocardiogram showed normal LV systolic function, mitral valve prolapse with mild mitral regurgitation. Brain MRI did not show any acute process. EEG did not show any epileptiform discharges. Carotid ultrasound showed less than 50% stenosis bilaterally at carotid bifurcation. Patient on bronchodilators, and IV steroids. Now on room air. Patient may discharge home. Patient seen and examined at bedside. Vital signs reviewed and stable. General: nontoxic, no distress, appears at stated age Derm: warm, dry Head: atraumatic, normocephalic, symmetric Eyes: EOMI, no lid lag, anicteric sclera Mouth: no lip lesion, mucus membranes moist Cardiovascular: S1S2 reg, no murmur Lungs: CTA bilateral, no rhonchi, no rales , no accessory muscle use Abdominal: soft, nontender to palpation, no guarding, no appreciable organomegaly Ext: no gross muscle atrophy, no edema, no contractures Neuro: CN II-XI grossly intact, no focal neuro deficits Psych: Alert, oriented, appropriate affect A total of 33 minutes of time were spent preparing this complex discharge summ [place]. Patient was discharged on 09/18/23 at 1326. Patient Condition at Discharge: Stable Plan - Discharge Summary Discharge Rx Participant: Yes New Discharge Prescriptions: New predniSONE [Deltasone] 40 mg PO DAILY #6 tab Mometasone/Formoterol [Dulera 100 Mcg-5 Mcg Inhaler] 1 puff INHALATION BID #13 gm Aspirin 81 mg PO DAILY #60 tab Continue Multivitamins, Thera [Multivitamin (formulary)] 1 tab PO DAILY Elderberry Fruit [Elderberry] 350 mg PO DAILY Ascorbic Acid [Vitamin C] 1,000 mg PO DAILY Acetaminophen/Diphenhydramine [Tylenol PM 500-25mg] 1 tab PO HS Discharge Medication List Multivitamins, Thera [Multivitamin (formulary)] 1 tab PO DAILY 08/03/15 [History] Acetaminophen/Diphenhydramine [Tylenol PM 500-25mg] 1 tab PO HS 09/15/23 [History] Ascorbic Acid [Vitamin C] 1,000 mg PO DAILY 09/15/23 [History] Elderberry Fruit [Elderberry] 350 mg PO DAILY 09/15/23 [History] Aspirin 81 mg PO DAILY #60 tab 09/18/23 [Rx] Mometasone/Formoterol [Dulera 100 Mcg-5 Mcg Inhaler] 1 puff INHALATION BID #13 gm 09/18/23 [Rx] predniSONE [Deltasone] 40 mg PO DAILY #6 tab 09/18/23 [Rx] Follow up Appointment(s)/Referral(s): Mita García MD [Primary Care Provider] - 1-2 days [facility], [NON-STAFF] - 1-2 Days ([facility] will call you to schedule your in home nursing, physical therapy, and occupational therapy visits. ) Patient Instructions/Handouts: Respiratory Syncytial Virus (DC), COPD (Chronic Obstructive Pulmonary Disease) (DC) Activity/Diet/Wound Care/Special Instructions: Please see your PCP. Discharge Disposition: HOME WITH HOME HEALTH SERVICES
--- NOTE | 2023-09-18 13:58 | P.PN ---
Subjective Progress Note Date: 09/18/23 I am seeing this patient in consultation today 09/16/2023 after she presented to the hospital yesterday morning chiefly for acute dyspnea and confusion. Patient is a 63-year-old white female past medical history significant for asthma, fibromyalgia, and previous CVA/TIA. She is a current every day smoker. Her primary care provider is Dr. Mejia. Patient is currently sitting up in bed, on 2 L/m nasal cannula, in no acute distress. She states that she does not remember much of what happened prior to coming in. She does state that she's been short of breath for approximately 4-5 days. She was around her 2 nieces, that recently ended up testing positive for RSV. Patient states that with her shortness breath, she's had an associated persistent nonproductive cough, wheezing, severe chest tightness. She states she has a history of asthma. Never been diagnosed with COPD. Although, she does continue to smoke. She is normally maintained on a combination of Advair and when necessary albuterol rescue inhaler. Patient did have positive urinalysis on admission. When questioned, the patient admits suprapubic tenderness and urinary frequency. Or hematuria Denies any burning or dysuria. No flank pain or hematuria. CBC on arrival was unremarkable. BMP on arrival: Sodium 141, potassium 4.1, chloride 108, serum bicarb 19, BUN 13, creatinine 0.74, glucose 117. Troponins less than 0.012. Procalcitonin level was low. Patient did test positive for RSV. She is currently afebrile. Vital signs are stable. the patient is seen today 09/17/2023 in follow-up on the regular medical floor. She is currently resting comfortably in bed. Awake and alert in no acute distress. Feeling a bit better today compared to yesterday. Still requiring 4 L nasal cannula to maintain O2 saturation in the 90s. Normal saline at 20 ML's per hour. She did have an episode of shortness of breath, dizziness and lightheadedness while up in a chair yesterday. urology was consulted. Carotid Doppler revealed less then 50% stenosis bilaterally. EEG revealed no focal lateralizing or epileptiform activity. Normal EEG. MRI of the brain revealed punctate deep white matter changes nonspecific. Chest x-ray continues to show no acute pulmonary process. Evidence of COPD.she is continued on DuoNeb inha lations, Symbicort, Solu-Medrol. NicoDerm patch in place. Lovenox for DVT prophylaxis. Procalcitonin was negative at 0.06. The patient is seen today 09/18/2023 in follow-up on the regular medical floor. She is currently sitting up in bed. Awake and alert in no acute distress. Doing quite a bit better today compared to yesterday. Feeling back to her baseline. She remains on DuoNeb inhalations, Symbicort, Solu-Medrol. NicoDerm patch in place. Lovenox for DVT prophylaxis. Objective - Vital Signs Vital signs: Vital Signs Temp 97.4 F L 09/18/23 07:03 Pulse 60 09/18/23 11:49 Resp 18 09/18/23 07:03 BP 128/74 09/18/23 07:03 Pulse Ox 95 09/18/23 11:03 FiO2 Intake & Output 09/17/23 09/18/23 09/18/23 18:59 06:59 18:59 Intake Total 0 440 Balance 0 440 Intake: Intake, IV Titration 0 200 Amount Sodium Chloride 0.9% 1, 0 200 000 ml @ 20 mls/hr IV . Q24H [facility] Rx#:[id number] Oral 240 - Exam GENERAL EXAM: Alert, oriented 63-year-old female, on 4 L nasal cannula, comfortable in no apparent distress. HEAD: Normocephalic and atraumatic EYES: Normal reaction of pupils, equal size. NOSE: Clear with pink turbinates. THROAT: No erythema or exudates. NECK: No masses, no JVD. CHEST: No chest wall deformity. LUNGS: Equal air entry with significant expiratory wheezing. Bronchospastic cough. No conversational dyspnea. CVS: S1 and S2 normal with no audible murmur, regular rhythm. No extra heart sounds ABDOMEN: No hepatosplenomegaly, active bowel sounds, no guarding or rigidity. SPINE: No scoliosis or deformity SKIN: No rashes CENTRAL NERVOUS SYSTEM: No focal deficits, tone is normal in all 4 extremities. EXTREMITIES: There is no peripheral edema, clubbing, or cyanosis. Peripheral pulses are intact. - Labs CBC & Chem 7: 09/16/23 06:18 09/16/23 06:18 Labs: Microbiology - Last 24 Hours (Table) 09/16/23 14:00 Urine Culture - Final Urine,Voided Assessment and Plan Assessment: Acute asthma exacerbation secondary to acute RSV infection, chest x-ray does not show any focal infiltrates or evidence of pneumonia. There is significant hyperinflation and flattened diaphragm with evidence of COPD Acute hypoxemic respiratory failure, currently on 4 L/m nasal cannula, secondary to above Chronic ongoing tobacco dependence Suspected urinary tract infection Acute metabolic encephalopathy, probably related to hypoxia and above, possibly related to marijuana use. MRI of the brain, EEG, carotid Dopplers within normal limits History of CVA/TIA History of fibromyalgia Plan: The patient was seen and evaluated Medications reviewed Titrate down the FiO2 as tolerated Transitioned from Solu-Medrol to prednisone taper Advised against marijuana use Educated regarding smoking cessation NicoDerm patch remains in place Discharge from the pulmonary standpoint Evaluate for possible home oxygen Follow-up in our office in 1 week We will continue to follow I have personally seen and examined the patient, performed the documentation and the assessment and plan as written. Number of minutes spent on the visit: 10.
[2023-09-18 15:06] VITALS: BP 116/64; PULSE 63; RESP 19; TEMP 97.9
== END 2023-09-18 16:20 | disposition home health service (06) | DRG 193 ==
LOC: EC 10:37 → OBSVTOIN 13:03 → 4SSUR 13:03
PROVIDERS: ADMIT Internal Medicine; ATTEND Internal Medicine
PROC: 4A10X4Z Monitoring of Central Nervous Electrical Activity, External Approach (ICD-10-PCS; principal; 2023-09-16)
DX: J12.1 Respiratory syncytial virus pneumonia (principal); G93.41 Metabolic encephalopathy; J96.01 Acute respiratory failure with hypoxia; J44.0 Chronic obstructive pulmonary disease with (acute) lower respiratory infection; J45.901 Unspecified asthma with (acute) exacerbation; Z11.52 Encounter for screening for COVID-19; J44.1 Chronic obstructive pulmonary disease with (acute) exacerbation; E87.20 Acidosis, unspecified; F17.210 Nicotine dependence, cigarettes, uncomplicated; F41.0 Panic disorder [episodic paroxysmal anxiety]; I65.23 Occlusion and stenosis of bilateral carotid arteries; Z86.73 Personal history of transient ischemic attack (TIA), and cerebral infarction without residual deficits; M79.7 Fibromyalgia; R55 Syncope and collapse; F04 Amnestic disorder due to known physiological condition
CPT/HCPCS: 36415; 70450; 70551; 71045; 80048; 80053; 80306; 80320; 81001; 82140; 82607; 82746; 82803; 83605; 83735; 84145; 84443; 84484; 85025; 85027; 85379; 87086; 87636; 93005; 93306; 93880; 94640; 94760; 95816; 96374; 96375; 99285

== ENCOUNTER → 2024-05-02 | Outpatient (CLI) | payer MEDICARE ==
--- NOTE | 2024-05-25 16:22 | US ---
Site ID [facility] Viviane Delgado ID [id number] Age/Gender: 64Y, N/A Order # N/A Procedure US gallbladder Date 05/02/2024 8:06:00 AM INDICATION: Patient age: [age] year old; Reason for study: Right upper quadrant pain COMPARISON: None, please note PACS Production downtime occurred during the radiologist interpretation of these images with limited priors/reports.. TECHNIQUE: Multiple grayscale and color doppler ultrasound images of the right upper abdomen obtained utilizing transabdominal imaging. FINDINGS: PANCREAS: The visualized portions of the pancreas are unremarkable. LIVER: The liver demonstrates a normal echotexture. There is no evidence of dilated ducts, cystic structures , or solid mass. Measures 14.4 cm in greatest dimension. GALLBLADDER: The gallbladder is without evidence of wall thickening, pericholecystic fluid, or cholelithiasis. The common duct measures approximately 5 mm. Per compensation business partner, the sonographic Gaming's sign was negative . RIGHT KIDNEY: The right kidney measures 9.8 x 3.5 x 4.2 cm, without evidence of hydronephrosis, shadowing calculus, or contour deforming solid mass. Renal parenchymal echogenicity is within normal limits. IMPRESSION: No sonographic evidence for acute process.
== END | disposition home or self-care (01) ==
LOC: RADUSWWP 15:45
PROVIDERS: ATTEND Surgery Plastic and Reconstructive Surgery
DX: R10.11 Right upper quadrant pain (principal)
CPT/HCPCS: 76705

== ENCOUNTER → 2024-05-03 | Outpatient (CLI) | payer MEDICARE ==
--- NOTE | 2024-05-03 10:01 | NM ---
EXAMINATION TYPE: NM hepatobiliary w EF DATE OF EXAM: 05/03/2024 COMPARISON: NONE CLINICAL INDICATION: Female, 64 years old with history of R10.11 RUQ PAIN; TECHNIQUE: After the intravenous administration of 5 mCi Tc 99m Mebrofenin hepatobiliary scintigraphy is performed. Immediate images post injection. FINDINGS: There is satisfactory initial accumulation of tracer by the liver. The gallbladder is visualized wit hin 8 minutes. The small bowel activity is noted after oral Ensure administration. At one hour 8 oun uma of oral ensure plus is given to mimic CCK and gallbladder ejection fraction is calculated at 61 % , in the normal range. IMPRESSION: No scintigraphic evidence for acute/chronic cholecystitis or biliary dyskinesia.
== END | disposition home or self-care (01) ==
LOC: RADNMMAIN 06:57
PROVIDERS: ATTEND Surgery Plastic and Reconstructive Surgery
DX: R10.11 Right upper quadrant pain (principal)
CPT/HCPCS: 78226

== ENCOUNTER → 2024-05-10 | Outpatient (CLI) | payer MEDICARE | END | disposition home or self-care (01) | LOC: LABWHC1 12:10 | PROVIDERS: ATTEND Surgery Plastic and Reconstructive Surgery | DX: R07.89 Other chest pain (principal); R94.31 Abnormal electrocardiogram [ECG] [EKG]; R00.1 Bradycardia, unspecified | CPT/HCPCS: 93005 ==

== ENCOUNTER 2024-07-29 12:14 | Day surgery (SDC) | payer MEDICARE ==
[2024-07-27 11:38] VITALS: BMI 18.3
[~2024-07-29 12:14] MED LIST: MIDAZOLAM 2 MG/2 ML VIAL IV PRN
[2024-07-29] MEDS: IV FLUID CONTINUATION 1,000 ML IV ONE ×6 (12:45→19:58)
[2024-07-29 12:51] VITALS: RESP 16
[2024-07-29] MEDS: LACTATED RINGERS 1,000 ML IV SCH (12:59)
[2024-07-29 13:03] LABS: Basophils % (A) 0 %; Eosinophils % (A) 1 %; HCT 41.4 % (34.0-46.0); HGB 13.5 gm/dL (11.4-16.0); Lymphocytes # (A) 1.7 k/uL (1.0-4.8); Lymphocytes % (A) 32 %; MCHC 32.6 g/dL (31.0-37.0); Mean Platelet Volume 7.3; Monocytes # (A) 0.3 k/uL (0-1.0); Monocytes % (A) 6 %; Neutrophils % (A) 59 %; Platelet Count 263 k/uL (150-450); RDW 13.7 % (11.5-15.5); WBC 5.2 k/uL (3.8-10.6)
[2024-07-29] MEDS: ONDANSETRON 4 MG/2 ML VIAL IVP PRN (13:04)
[2024-07-29] MEDS: ACETAMINOPHEN TAB 500 MG TAB PO PRN (13:05)
[2024-07-29] MEDS: HEPARIN SODIUM,PORCINE 5,000 UNIT/ML 1 ML VIAL SQ PRN (13:05)
[2024-07-29] MEDS: DEXAMETHASONE SOD PHOSPHATE 4 MG/ML 1 ML VIAL IVP STA (13:05)
[2024-07-29 13:50] LABS: ALT 20 U/L (4-34); African American GFR (CKD) >90 (>60 ml/min/1.73 sqM); Albumin 4.6 g/dL (3.5-5.0); Anion Gap 8 mmol/L; Blood Urea Nitrogen 18 mg/dL (7-17); Calcium 8.9 mg/dL (8.4-10.2); Carbon Dioxide 21 mmol/L (22-30); Chloride 111 mmol/L (98-107); Glucose 85 mg/dL (74-99); Non-African American GFR(CKD) >90 (>60 ml/min/1.73 sqM); Sodium 140 mmol/L (137-145); Total Bilirubin 0.9 mg/dL (0.2-1.3)
[2024-07-29] MEDS ORDERED: GLYCOPYRROLATE 0.2 MG/ML 2 ML VIAL ONE (13:53)
[2024-07-29] MEDS ORDERED: PHENYLEPHRINE 10 MG/ML VIAL ONE (13:53)
[2024-07-29] MEDS ORDERED: INDOCYANINE GREEN 25 MG VIAL IV ONE (13:53)
[2024-07-29] MEDS ORDERED: fentaNYL (PF) 50 MCG/ML 2 ML AMP ONE (13:53)
[2024-07-29] MEDS ORDERED: SUCCINYLCHOLINE CHLORIDE 200 MG/10 ML VIAL IV ONE (13:53)
[2024-07-29] MEDS ORDERED: ROCURONIUM 10 MG/ML (5 ML VIAL) IV ONE (13:53)
[2024-07-29] MEDS ORDERED: PROPOFOL 10 MG/ML 20 ML VIAL IV ONE (13:53)
[2024-07-29] MEDS ORDERED: MIDAZOLAM 2 MG/2 ML VIAL ONE (13:53)
[2024-07-29] MEDS ORDERED: LIDOCAINE 1% INJ 10MG/ML (20 ML MDV) ONE (13:53)
[2024-07-29] MEDS ORDERED: NEOSTIGMINE 1 MG/ML 10 ML VIAL ONE (13:53)
[2024-07-29] MEDS: LIDOCAINE 1%-EPI 1:100,000 20 ML VIAL SQ ONE (14:18)
[2024-07-29 14:32] LABS: Potassium 4.7 mmol/L (3.5-5.1)
[2024-07-29 14:33] LABS: AST 43 U/L (14-36); Alkaline Phosphatase 42 U/L (38-126)
[2024-07-29] MEDS: HYDROmorphone 0.5 MG/0.5 ML SYRINGE IVP PRN (15:19)
[2024-07-29] MEDS: droPERidol 5 MG/2 ML VIAL IVP ONE (15:23)
[2024-07-29 15:29] VITALS: TEMP 96.9
--- NOTE | 2024-07-29 16:03 | P.GSHP ---
History of Present Illness H&P Date: 07/29/24 CHIEF COMPLAINT: Cholecystitis HISTORY OF PRESENT ILLNESS: The patient is a 64-year-old female who presents with history of epigastric including right upper quadrant abdominal pain. She underwent diagnostic studies for her gallbladder. Separately her clinical picture was consistent with cholecystitis. Now she presents for surgical intervention. PAST MEDICAL HISTORY: Please see list PAST SURGICAL HISTORY: Please see list MEDICATIONS: Please see list ALLERGIES: Please see list SOCIAL HISTORY: Please see list FAMILY HISTORY: Please see list REVIEW OF ORGAN SYSTEMS: CONSTITUTIONAL: No reports of fevers or chills. HEENT: Denies any troubles with the vision or hearing. ENDOCRINE: No reports of hypothyroidism. No diabetes. RESPIRATORY: No recent pneumonias. CARDIOVASCULAR: Denies chest pain or palpitations GI: No blood in stools or constipation. MUSCULOSKELETAL: Has occasional joint pain including back pain. NEURO: No seizure disorders or headaches. No recent stroke. PSYCH: No depression or suicidal ideation. GENITOURINARY: No active blood in urine. No urinary hesitancy. HEMATOLOGIC: No personal or family history of DVTs or pulmonary emboli. SKIN: No skin cancer. PHYSICAL EXAM: VITAL SIGNS: Afebrile vital signs stable GENERAL: Well-developed pleasant in no acute distress. HEENT: No scleral icterus. Extraocular movements grossly intact. Moist buccal mu cosa. NECK: Supple without lymphadenopathy. CHEST: Unlabored respirations. Equal bilateral excursions. CARDIOVASCULAR: Regular rate regular rhythm rhythm. Distal 2+ pulses. ABDOMEN: Soft, nondistended. Tender along the epigastrium and right upper quadrant. MUSCULOSKELETAL: No clubbing, cyanosis, or edema. NEURO: Cranial nerves II to XII within normal limits. No focal or lateralizing signs. PSYCH: Alert and oriented to person, place and time. SKIN: Well-perfused good skin turgor. ASSESSMENT: 1. Epigastric and right upper quadrant abdominal pain 2. Chronic cholecystitis 3. Symptomatic gallstones. PLAN: 1. Will need a robotic cholecystectomy possible open. Benefits and risks were described. 2. Heparin for DVT prophylaxis 5000 units. 3. Antibiotic prophylaxis. 4. CBC and CMP on day of procedure 5. Non-narcotic pre and post op pain management reviewed. 6. Indocyanine green for biliary imaging. Past Medical History Past Medical History: Asthma, CVA/TIA, Fibromyalgia Additional Past Medical History / Comment(s): Hx TIA-2013. Stomach ulcers. History of Any Multi-Drug Resistant Organisms: None Reported Past Surgical History: Hysterectomy, Orthopedic Surgery, Tonsillectomy Additional Past Surgical History / Comment(s): LEFT SHOULDER SURGERY, EGD. Past Anesthesia/Blood Transfusion Reactions: Motion Sickness, Postoperative Nausea & Vomiting (PONV) Smoking Status: Former smoker - Past Family History Mother Additional Family Medical History / Comment(s): Carotid stenosis. Brother(s) Family Medical History: Cancer, CVA/TIA Additional Family Medical History / Comment(s): Brother had throat and bladder cancer. Medications and Allergies Home Medications Medication Instructions Recorded Confirmed Type Multivitamins, Thera [Multivitamin 1 tab PO DAILY 08/03/15 07/27/24 History (formulary)] Acetaminophen/Diphenhydramine 1 tab PO HS 09/15/23 07/29/24 History [Tylenol PM 500-25mg] Elderberry Fruit [Elderberry] 350 mg PO DAILY 09/15/23 07/27/24 History Budesonide/Formoterol Fumarate 1 puff INHALATION BID PRN 04/06/24 07/29/24 History [Symbicort 160-4.5 Mcg Inhaler] Cholecalciferol [Vitamin D3 (25 25 mcg PO DAILY 04/06/24 07/27/24 History Mcg = 1000 Iu)] Acetaminophen Tab [Tylenol Tab] 500 mg PO Q6H PRN #30 tablet 07/29/24 Rx Ibuprofen [Motrin] 600 mg PO Q8HR PRN #30 tab 07/29/24 Rx Simethicone [Gas-X] 125 mg PO AC-TID PRN #20 capsule 07/29/24 Rx Allergies Allergy/AdvReac Type Severity Reaction Status Date / Time NARCOTICS AdvReac Nausea & Uncoded 07/29/24 12:43 Vomiting Surgical - Exam Vital Signs Pulse Resp BP Pulse Ox 52 L 16 128/71 99 07/29/24 12:50 07/29/24 12:50 07/29/24 12:50 07/29/24 12:50 Results - Labs 07/29/24 12:57 07/29/24 12:57 Abnormal Lab Results - Last 24 Hours (Table) 07/29/24 Range/Units 12:57 Chloride 111 H (98-107) mmol/L Carbon Dioxide 21 L (22-30) mmol/L BUN 18 H (7-17) mg/dL AST 43 H (14-36) U/L Diabetes panel 07/29/24 Range/Units 12:57 Sodium 140 (137-145) mmol/L Potassium 4.7 (3.5-5.1) mmol/L Chloride 111 H (98-107) mmol/L Carbon Dioxide 21 L (22-30) mmol/L BUN 18 H (7-17) mg/dL Creatinine 0.71 (0.52-1.04) mg/dL Glucose 85 (74-99) mg/dL Calcium 8.9 (8.4-10.2) mg/dL AST 43 H (14-36) U/L ALT 20 (4-34) U/L Alkaline Phosphatase 42 (38-126) U/L Total Protein 7.0 (6.3-8.2) g/dL Albumin 4.6 (3.5-5.0) g/dL Calcium panel 07/29/24 Range/Units 12:57 Calcium 8.9 (8.4-10.2) mg/dL Albumin 4.6 (3.5-5.0) g/dL Pituitary panel 07/29/24 Range/Units 12:57 Sodium 140 (137-145) mmol/L Potassium 4.7 (3.5-5.1) mmol/L Chloride 111 H (98-107) mmol/L Carbon Dioxide 21 L (22-30) mmol/L BUN 18 H (7-17) mg/dL Creatinine 0.71 (0.52-1.04) mg/dL Glucose 85 (74-99) mg/dL Calcium 8.9 (8.4-10.2) mg/dL Adrenal panel 07/29/24 Range/Units 12:57 Sodium 140 (137-145) mmol/L Potassium 4.7 (3.5-5.1) mmol/L Chloride 111 H (98-107) mmol/L Carbon Dioxide 21 L (22-30) mmol/L BUN 18 H (7-17) mg/dL Creatinine 0.71 (0.52-1.04) mg/dL Glucose 85 (74-99) mg/dL Calcium 8.9 (8.4-10.2) mg/dL Total Bilirubin 0.9 (0.2-1.3) mg/dL AST 43 H (14-36) U/L ALT 20 (4-34) U/L Alkaline Phosphatase 42 (38-126) U/L Total Protein 7.0 (6.3-8.2) g/dL Albumin 4.6 (3.5-5.0) g/dL
[2024-07-29 19:44] VITALS: BP 116/56; PULSE 48
--- NOTE | 2024-08-06 21:36 | P.OP ---
Date of Procedure: 07/29/24 Description of Procedure: SURGEON: VIVIANE JAMES MD PREOPERATIVE DIAGNOSES: 1. Chronic cholecystitis 2. Right upper quadrant abdominal pain 3. 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 Fibromyalgia 5. History of cerebrovascular accident 6. Generalized anxiety disorder 7. Postop nausea vomiting POSTOPERATIVE DIAGNOSES: 1. Chronic cholecystitis 2. Right upper quadrant abdominal pain 3. 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 Fibromyalgia 5. History of cerebrovascular accident 6. Generalized anxiety disorder 7. Postop nausea vomiting 8. Severe hepatomegaly with fatty liver disease 9. Right upper quadrant pericholecystic and abdominal wall adhesions OPERATION: 1. Robotic-assisted da Hermilo Xi laparoscopic lysis of adhesions 2. Robotic-assisted da Hermilo Xi laparoscopic cholecystectomy, multiport with FIREFLY ESTIMATED BLOOD LOSS: 5 mL. SPECIMENS REMOVED: Gallbladder. COMPLICATIONS: None. OPERATIVE FINDINGS: 1. Moderate right upper quadrant adhesions omentum to chest and abdominal wall including pericholecystic adhesions 2. Severe hepatomegaly with fatty liver disease adding moderate complexity to the case INDICATIONS: The patient is a 64-year-old female who presents with worsening right upper quadrant abdominal pain exacerbated with fatty greasy foods and clinical history of cholecystitis. Robotic assisted laparoscopic approach was described. Benefits and risks of the procedure including but not limited to bleeding, infection, injury to the biliary tree was described. Informed consent was obtained. DESCRIPTION OF PROCEDURE: Patient was brought to the operating room, placed in supine position. After general induction, the abdomen had been prepped and draped in standard sterile fashion. The robotic da Hermilo XI system was primed. After a timeout protocol was performed, the patient had been prepped and draped in standard sterile fashion. The patient was injected with indocyanine green. A 5 mm 0 degrees laparoscopic trocar entry was performed along the left upper quadrant. The abdomen insufflated to 15 mmHg pressure which was tolerated well. Diagnostic laparoscopy demonstrated no injury to bowel viscera or mesentery. Severe hepatomegaly with the gallbladder extended to the pelvis was identified adding moderate complexity to the case. Adhesions were identified along the bilateral upper abdomen worse along the right versus left abdomen. Next, two 8 mm robotic ports were placed along the right upper abdomen. The camera 8-mm port was maintained along the epigastrium. Another 8 mm port was placed along the left upper abdominal wall after exchanging the 5 mm port. Please note that the ports were placed at least 10 to 15 cm away from the target anatomy of the gallbladder. The robot was docked along the left lateral abdomen. The patient was repositioned in reverse Trendelenburg position. Using a grasper for arm 3, a grasper for arm 4, including hook cautery for arm 1, the robotic system was docked and primed as described. Instruments were interchanged by the assistant toddler teacher including hook cautery, Bovie cautery and clip appliers. I had sat at the console. The gallbladder was scarred with peritoneal adhesions including adhesions of the omentum to the right lateral abdominal wall. Lysis of adhesions was performed to free the gallbladder from the surrounding tissues including peritoneal adhesions of the right upper quadrant due to the patient's abdominal pain. Dome down technique was performed due to very large liver and limited intra-abdominal space. Dissection occurred from the gallbladder fundus toward the infundibulum carefully. Next attention was brought to the infundibulum and cystic structures. The infundibulum and cystic duct were dissected free from surrounding tissues. The cystic duct was isolated. FIREFLY was used to identify the cystic artery and cystic structures. A critical view of safety was obtained. Large PLASTIC clips were used throughout the entire case. Using a clip adjunct philosophy faculty, 2 clips were placed at the junction of the infundibulum and cystic duct. The cystic duct was divided between clips. Next, the cystic artery was similarly clipped and cauterized. Electro-Bovie cautery was used to remove the gallbladder from the hepatic fossa. Hemostasis was checked and found to be adequate. The robot was undocked. I re-scrubbed into the case. Using a 10 mm Endo Catch bag via the left upper quadrant incision, the specimen was removed from the abdominal cavity. All pneumoperitoneum instruments were evacuated from the abdominal cavity. The incisions were reapproximated using 4-0 Monocryl in an interrupted subcuticular fashion. Fascial defects were less than 8 mm in size. Please note along the trocar sites, local anesthetic was placed as a field block prior to insertion of all instruments. Liquid glue was applied to the skin. At the end of the procedure needle, sponge, and instrument count had been verified correct by the automotive diagnostic technician. The patient was transferred to postanesthesia care unit in stable condition. Intraoperative films were shared with the patient's family. Plan - Discharge Summary Discharge Rx Participant: Yes New Discharge Prescriptions: New Simethicone [Gas-X] 125 mg PO AC-TID PRN #20 capsule PRN Reason: Pain Ibuprofen [Motrin] 600 mg PO Q8HR PRN #30 tab PRN Reason: Pain Acetaminophen Tab [Tylenol Tab] 500 mg PO Q6H PRN #30 tablet PRN Reason: Pain Continue Multivitamins, Thera [Multivitamin (formulary)] 1 tab PO DAILY Elderberry Fruit [Elderberry] 350 mg PO DAILY Budesonide/Formoterol Fumarate [Symbicort 160-4.5 Mcg Inhaler] 1 puff INHALATION BID PRN PRN Reason: Shortness Of Breath Acetaminophen/Diphenhydramine [Tylenol PM 500-25mg] 1 tab PO HS Cholecalciferol [Vitamin D3 (25 Mcg = 1000 Iu)] 25 mcg PO DAILY Discharge Medication List Multivitamins, Thera [Multivitamin (formulary)] 1 tab PO DAILY 08/03/15 [History] Acetaminophen/Diphenhydramine [Tylenol PM 500-25mg] 1 tab PO HS 09/15/23 [History] Elderberry Fruit [Elderberry] 350 mg PO DAILY 09/15/23 [History] Budesonide/Formoterol Fumarate [Symbicort 160-4.5 Mcg Inhaler] 1 puff INHALATION BID PRN 04/06/24 [History] Cholecalciferol [Vitamin D3 (25 Mcg = 1000 Iu)] 25 mcg PO DAILY 04/06/24 [History] Acetaminophen Tab [Tylenol Tab] 500 mg PO Q6H PRN #30 tablet 07/29/24 [Rx] Ibuprofen [Motrin] 600 mg PO Q8HR PRN #30 tab 07/29/24 [Rx] Simethicone [Gas-X] 125 mg PO AC-TID PRN #20 capsule 07/29/24 [Rx] Follow up Appointment(s)/Referral(s): Viviane James MD [STAFF PHYSICIAN] - 08/02/24 6:30 pm (Dr hopper call you) Patient Instructions/Handouts: *[facility] - Managing Your Pain After Surgery Without Opioids, *[facility] - (Anesthesia) Discharge Instructions Outpatient Surgery, Low Fat Diet (DC), Non-Alcoholic Fatty Liver Disease (GEN), Laparoscopic Cholecystectomy (DC) Activity/Diet/Wound Care/Special Instructions: TELEHEALTH - DR HOPPER CALL YOU BETWEEN 9 am to 8 pm NO LONG DRIVES OR AIRPLANE RIDES OVER 60 MINUTES FOR THE NEXT, 08/12/24, WEEKS DUE TO HIGH RISK OF PULMONARY EMBOLISM/DVTs May drive in 72 hrs, 08/01/24 Recommend low-fat diet for the next 2 days. No lifting over 10 pounds in 2 weeks until 08/12/24, May shower. No bath tub soaks for two weeks until 08/12/24, Diet as tolerated. Use Tylenol, simethicone and ibuprofen or Aleve scheduled for the next 24-48 hours for best pain relief. Use ice along incisions for today to prevent swelling. Discharge Disposition: HOME SELF-CARE
== END 2024-07-29 20:25 | disposition home or self-care (01) ==
LOC: OR 12:14
PROVIDERS: ATTEND Surgery Plastic and Reconstructive Surgery
DX: K81.1 Chronic cholecystitis (principal); K66.0 Peritoneal adhesions (postprocedural) (postinfection); J44.9 Chronic obstructive pulmonary disease, unspecified; M79.7 Fibromyalgia; F41.1 Generalized anxiety disorder; K76.0 Fatty (change of) liver, not elsewhere classified; Z79.899 Other long term (current) drug therapy; Z87.891 Personal history of nicotine dependence; Z98.890 Other specified postprocedural states; Z90.710 Acquired absence of both cervix and uterus; Z90.89 Acquired absence of other organs; Z87.11 Personal history of peptic ulcer disease; Z86.73 Personal history of transient ischemic attack (TIA), and cerebral infarction without residual deficits; Z88.5 Allergy status to narcotic agent
CPT/HCPCS: 47562; S2900; 80053; 85025; 88304

== ENCOUNTER 2024-08-10 08:41 | Emergency (ER) | payer MEDICARE ==
[2024-08-10] MEDS ORDERED: IOPAMIDOL CONTRAST (ORAL USE) VIAL PO PRN (08:57)
[2024-08-10] MEDS: SODIUM CHLORIDE 0.9% 1,000 ML IV STA (09:18)
[2024-08-10 09:29] LABS: Basophils % (A) 0 %; Eosinophils # (A) 0.6 k/uL (0-0.7); Eosinophils % (A) 6 %; HCT 40.5 % (34.0-46.0); Lymphocytes # (A) 1.6 k/uL (1.0-4.8); Lymphocytes % (A) 17 %; MCH 28.8 pg (25.0-35.0); MCHC 32.2 g/dL (31.0-37.0); MCV 89.5 fL (80.0-100.0); Mean Platelet Volume 7.9; Monocytes # (A) 0.3 k/uL (0-1.0); Monocytes % (A) 4 %; Neutrophils # (A) 6.5 k/uL (1.3-7.7); Neutrophils % (A) 72 %; Platelet Count 374 k/uL (150-450); RBC 4.52 m/uL (3.80-5.40); WBC 9.1 k/uL (3.8-10.6)
[2024-08-10 09:35] LABS: Appearance,Urine Cloudy (Clear); Bacteria,Urine Many /hpf; Bilirubin,Urine Negative (Negative); Blood,Urine Small (Negative); Color,Urine Colorless; Glucose,Urine (UA) Negative (Negative); Ketones,Urine Negative (Negative); Leukocyte Esterase,Urine Large (Negative); Mucus,Urine Rare /hpf; Nitrite,Urine Negative (Negative); Protein,Urine Negative (Negative); RBC,Urine 8 /hpf (0-5); Squamous Epithelial Cell,Urine <1 /hpf (0-4); Urobilinogen,Urine <2.0 mg/dL (<2.0); WBC,Urine 45 /hpf (0-5)
[2024-08-10 09:41] LABS: ALT 23 U/L (4-34); African American GFR (CKD) >90 (>60 ml/min/1.73 sqM); Amylase 91 U/L (30-110); Anion Gap 7 mmol/L; Blood Urea Nitrogen 17 mg/dL (7-17); Carbon Dioxide 22 mmol/L (22-30); Chloride 110 mmol/L (98-107); Glucose 91 mg/dL (74-99); Lipase 137 U/L (23-300); Non-African American GFR(CKD) >90 (>60 ml/min/1.73 sqM); Sodium 139 mmol/L (137-145); Total Bilirubin 0.7 mg/dL (0.2-1.3)
--- NOTE | 2024-08-10 09:42 | ED ---
General Adult HPI - General Chief complaint: Abdominal Pain Stated complaint: abd pain Time Seen by Provider: 08/10/24 08:58 Source: patient, RN notes reviewed, old records reviewed Mode of arrival: ambulatory Limitations: no limitations - History of Present Illness Initial comments: Patient is a 64-year-old female presents emergency department for abdominal pain. Recently had a cholecystectomy last month with Dr. James. Has a history of fibromyalgia and asthma. Dr. Guzman called ahead and would like the patient evaluated for abdominal pain since surgery. Recommended CT abdomen pelvis with IV and oral contrast as well as ultrasound of the right upper quadrant. This is in addition to her labs. Patient states that since surgery she has been having upper abdominal pain that is hard to describe as well as diarrhea. No nausea or vomiting. No chest pain or shortness of breath. No fevers or chills. Surgery was on number 22nd. Presents for further evaluation at this time. - Related Data Home Medications Medication Instructions Recorded Confirmed Multivitamins, Thera [Multivitamin 1 tab PO DAILY 08/03/15 07/27/24 (formulary)] Acetaminophen/Diphenhydramine 1 tab PO HS 09/15/23 07/29/24 [Tylenol PM 500-25mg] Elderberry Fruit [Elderberry] 350 mg PO DAILY 09/15/23 07/27/24 Budesonide/Formoterol Fumarate 1 puff INHALATION BID PRN 04/06/24 07/29/24 [Symbicort 160-4.5 Mcg Inhaler] Cholecalciferol [Vitamin D3 (25 25 mcg PO DAILY 04/06/24 07/27/24 Mcg = 1000 Iu)] Previous Rx's Medication Instructions Recorded Acetaminophen Tab [Tylenol Tab] 500 mg PO Q6H PRN #30 tablet 07/29/24 Ibuprofen [Motrin] 600 mg PO Q8HR PRN #30 tab 07/29/24 Simethicone [Gas-X] 125 mg PO AC-TID PRN #20 capsule 07/29/24 Cephalexin [Keflex] 500 mg PO Q12HR 7 Days #14 cap 08/10/24 Cholestyramine (with Sugar) 4 gm PO BID #300 gm 08/10/24 [Cholestyramine Powder] Allergies Allergy/AdvReac Type Severity Reaction Status Date / Time NARCOTICS AdvReac Nausea & Uncoded 08/10/24 08:51 Vomiting Review of Systems ROS Statement: Those systems with pertinent positive or pertinent negative responses have been documented in the HPI. Review of Systems: CONST: Denies fever EYES: Denies blurry vision ENT: Denies nasal congestion C/V: Denies Chest pain RESP: Denies shortness of breath GI: Endorses abdominal pain : Denies dysuria SKIN: Denies rash. MSK: Denies joint pain. NEURO: Denies headache ROS Other: All systems not noted in ROS Statement are negative. Past Medical History Past Medical History: Asthma, CVA/TIA, Fibromyalgia Additional Past Medical History / Comment(s): Hx TIA-2013. Stomach ulcers. History of Any Multi-Drug Resistant Organisms: None Reported Past Surgical History: Cholecystectomy, Hysterectomy, Orthopedic Surgery, Tonsillectomy Additional Past Surgical History / Comment(s): LEFT SHOULDER SURGERY, EGD. Past Anesthesia/Blood Transfusion Reactions: Motion Sickness, Postoperative Nausea & Vomiting (PONV) Past Psychological History: Anxiety Smoking Status: Former smoker Past Alcohol Use History: None Reported Past Drug Use History: Marijuana - Past Family History Mother Additional Family Medical History / Comment(s): Carotid stenosis. Brother(s) Family Medical History: Cancer, CVA/TIA Additional Family Medical History / Comment(s): Brother had throat and bladder cancer. General Exam - General Exam Comments Initial Comments: General: Appears in mild distress secondary to pain HEAD: Normal with no signs of head trauma. EYES: EOMI ENT: Hearing grossly intact, normal oropharynx. RESPIRATORY: Clear breath sounds bilaterally. No wheezes, rales, or rhonchi. C/V: Regular rate and rhythm. S1 and S2 auscultated, no edema, peripheral pulses 2+ and intact throughout ABD: Abdomen soft, nondistended. Tender palpation in the upper quadrants of her abdomen. No guarding or rebound tenderness. No peritoneal signs. Laparoscopic incisions appear within acceptable limits. EXT: Normal range of motion, no obvious deformity SKIN: No rashes or lesions observed on exposed skin. NEURO: Alert and oriented x 4. Limitations: no limitations Course Vital Signs 08/10/24 08/10/24 08/10/24 08:49 09:00 10:00 Temperature 97.7 F Pulse Rate 72 73 61 Respiratory 20 17 19 Rate Blood Pressure 123/73 113/80 129/89 O2 Sat by Pulse 98 98 99 Oximetry 08/10/24 13:32 Temperature 97.9 F Pulse Rate 59 L Respiratory 17 Rate Blood Pressure 111/85 O2 Sat by Pulse 97 Oximetry Medical Decision Making - Medical Decision Making Was pt. sent in by a medical professional or institution (, PA, [employer], urgent care, hospital, or alf...) When possible be specific @ -Sent by her surgeon, Dr. James for further workup. Did you speak to anyone other than the patient for history (EMS, parent, family, police, friend...)? What history was obtained from this source @ -No Did you review nursing and triage notes (agree or disagree)? Why? @ -I reviewed and agree with nursing and triage notes Were old charts reviewed (outside hosp., previous admission, EMS record, old EKG, old radiological studies, urgent care reports/EKG's, alf records)? Report findings @ -Reviewed old charts which show she had a cholecystectomy laparoscopically on July 29, 2024. Differential Diagnosis (chest pain, altered mental status, abdominal pain women, abdominal pain men, vaginal bleeding, weakness, fever, dyspnea, syncope, headache, dizziness, GI bleed, back pain, seizure, CVA, palpatations, mental health, musculoskeletal)? @ -Differential Abdominal Pain Women: Appendicitis, Cholecystitis, diverticulosis, ischemic bowel, pancreatitis, hepatitis, UTI, gastroenteritis, AAA, incarcerated hernia, bowel obstruction, constipation, inflammatory bowel, hepatitis, peptic ulcer disease, splenic infarction, perforated viscus, vulvitis, ovarian torsion, PID, kidney stone, placenta abruption, this is not meant to be an all-inclusive list EKG interpreted by me (3pts min.). @ -As above X-rays interpreted by me (1pt min.). @ -None done CT interpreted by me (1pt min.). @ -CT abdomen pelvis reveals no obvious acute intra-abdominal process. Postsurgical changes present. U/S interpreted by me (1pt. min.). @ -Gallbladder ultrasound shows postsurgical changes but no obvious acute process. What testing was considered but not performed or refused? (CT, X-rays, U/S, labs)? Why? @ -None What meds were considered but not given or refused? Why? @ -None Did you discuss the management of the patient with other professionals (prof essionals i.e. , SHERIE, [employer], lab, RT, psych nurse, social worker aide, volunteer services assistant, teacher, contact officer, lead case manager)? Give summary @ -Discussed with Dr. Celaya prior to arrival and requested CT abdomen pelvis with oral and IV contrast as well as ultrasound of the right upper quadrant and abdominal laboratory studies.She evaluate the patient after imaging was completed and discussed and was in agreement plan for discharge with follow- up. Asked that I write a prescription for cholestyramine. Was smoking cessation discussed for >3mins.? @ -No Was critical care preformed (if so, how long)? @ -No Were there social determinants of health that impacted care today? How? (Homelessness, low income, unemployed, alcoholism, drug addiction, transportation, low edu. Level, literacy, decrease access to med. care, intermediate, rehab)? @ -No Was there de-escalation of care discussed even if they declined (Discuss DNR or withdrawal of care, Hospice)? DNR status @ -No What co-morbidities impacted this encounter? (DM, HTN, Smoking, COPD, CAD, Cancer, CVA, ARF, Chemo, Hep., AIDS, mental health diagnosis, sleep apnea, morbid obesity)? @ -Recent laparoscopic cholecystectomy Was patient admitted / discharged? Hospital course, mention meds given and route, prescriptions, significant lab abnormalities, going to OR and other pertinent info. @ -Patient presents emergency department with abdominal pain. Is in the upper quadrants. We will obtain abdominal laboratory studies, CT with IV and oral contrast, as well as ultrasound of the abdomen. Patient was sent in by her surgeon for further workup. Dr. James outlined her desired workup to me and I believe this is reasonable. Patient was in agreement this plan. She declines any analgesia medications but will receive IV fluids, Zofran, Protonix. Vitals are within acceptable limits. Laboratory studies returned remarkable for UTI. Patient given dose of Rocephin. Patient's imaging returned unremarkable for any obvious acute process abdomen postsurgical findings. Patient was evaluated by Dr. Celaya and we agreed to discharge patient home on antibiotics as well as a prescription for cholestyramine. Patient will follow-up with her. Patient was in agreement this plan. I will provide the patient with a prescription for Keflex. I instructed the patient to follow up with their PCP in the next 1-3 days.. I explained that the patient should return to the emergency department if they experience any worsening symptoms. Strict return precautions were discussed with the patient. The patient expressed understanding of these instructions. I answered all questions that the patient had. The patient was discharged home in good conditi on with their prescriptions and follow up information. Dr. James requested the patient follow-up with orthopedic spine if patient's back pain is persistent. Undiagnosed new problem with uncertain prognosis? @ -No Drug Therapy requiring intensive monitoring for toxicity (Heparin, Nitro, Insulin, Cardizem)? @ -No Were any procedures done? @ -No Diagnosis/symptom? @ -Postop pain, UTI Acute, or Chronic, or Acute on Chronic? @ -Acute Uncomplicated (without systemic symptoms) or Complicated (systemic symptoms)? @ -Complicated Side effects of treatment? @ -None Exacerbation, Progression, or Severe Exacerbation] @ -No Poses a threat to life or bodily function? @ -Unlikely - Lab Data Result diagrams: 08/10/24 09:10 08/10/24 09:10 Lab Results 08/10/24 08/10/24 08/10/24 Range/Units 09:10 09:10 09:10 WBC 9.1 (3.8-10.6) k/uL RBC 4.52 (3.80-5.40) m/uL Hgb 13.0 (11.4-16.0) gm/dL Hct 40.5 (34.0-46.0) % MCV 89.5 (80.0-100.0) fL MCH 28.8 (25.0-35.0) pg MCHC 32.2 (31.0-37.0) g/dL RDW 14.0 (11.5-15.5) % Plt Count 374 (150-450) k/uL MPV 7.9 Neutrophils % 72 % Lymphocytes % 17 % Monocytes % 4 % Eosinophils % 6 % Basophils % 0 % Neutrophils # 6.5 (1.3-7.7) k/uL Lymphocytes # 1.6 (1.0-4.8) k/uL Monocytes # 0.3 (0-1.0) k/uL Eosinophils # 0.6 (0-0.7) k/uL Basophils # 0.0 (0-0.2) k/uL PT (10.0-12.5) sec INR (<1.2) APTT (22.0-30.0) sec Sodium 139 (137-145) mmol/L Potassium 5.0 (3.5-5.1) mmol/L Chloride 110 H (98-107) mmol/L Carbon Dioxide 22 (22-30) mmol/L Anion Gap 7 mmol/L BUN 17 (7-17) mg/dL Creatinine 0.69 (0.52-1.04) mg/dL Est GFR (CKD-EPI)AfAm >90 (>60 ml/min/1.73 sqM) Est GFR (CKD-EPI)NonAf >90 (>60 ml/min/1.73 sqM) Glucose 91 (74-99) mg/dL Plasma Lactic Acid Anthony 1.5 (0.7-2.0) mmol/L Calcium 9.0 (8.4-10.2) mg/dL Total Bilirubin 0.7 (0.2-1.3) mg/dL AST 29 (14-36) U/L ALT 23 (4-34) U/L Alkaline Phosphatase 45 (38-126) U/L Total Protein 6.7 (6.3-8.2) g/dL Albumin 4.1 (3.5-5.0) g/dL Amylase 91 (30-110) U/L Lipase 137 (23-300) U/L Urine Color Urine Appearance (Clear) Urine pH (5.0-8.0) Ur Specific [place] (1.001-1.035) Urine Protein (Negative) Urine Glucose (UA) (Negative) Urine Ketones (Negative) Urine Blood (Negative) Urine Nitrite (Negative) Urine Bilirubin (Negative) Urine Urobilinogen (<2.0) mg/dL Ur Leukocyte Esterase (Negative) Urine RBC (0-5) /hpf Urine WBC (0-5) /hpf Ur Squamous Epith Cells (0-4) /hpf Urine Bacteria (None) /hpf Urine Mucus (None) /hpf 08/10/24 08/10/24 Range/Units 09:10 09:10 WBC (3.8-10.6) k/uL RBC (3.80-5.40) m/uL Hgb (11.4-16.0) gm/dL Hct (34.0-46.0) % MCV (80.0-100.0) fL MCH (25.0-35.0) pg MCHC (31.0-37.0) g/dL RDW (11.5-15.5) % Plt Count (150-450) k/uL MPV Neutrophils % % Lymphocytes % % Monocytes % % Eosinophils % % Basophils % % Neutrophils # (1.3-7.7) k/uL Lymphocytes # (1.0-4.8) k/uL Monocytes # (0-1.0) k/uL Eosinophils # (0-0.7) k/uL Basophils # (0-0.2) k/uL PT 10.1 (10.0-12.5) sec INR 0.9 (<1.2) APTT 26.8 (22.0-30.0) sec Sodium (137-145) mmol/L Potassium (3.5-5.1) mmol/L Chloride (98-107) mmol/L Carbon Dioxide (22-30) mmol/L Anion Gap mmol/L BUN (7-17) mg/dL Creatinine (0.52-1.04) mg/dL Est GFR (CKD-EPI)AfAm (>60 ml/min/1.73 sqM) Est GFR (CKD-EPI)NonAf (>60 ml/min/1.73 sqM) Glucose (74-99) mg/dL Plasma Lactic Acid Anthony (0.7-2.0) mmol/L Calcium (8.4-10.2) mg/dL Total Bilirubin (0.2-1.3) mg/dL AST (14-36) U/L ALT (4-34) U/L Alkaline Phosphatase (38-126) U/L Total Protein (6.3-8.2) g/dL Albumin (3.5-5.0) g/dL Amylase (30-110) U/L Lipase (23-300) U/L Urine Color Colorless Urine Appearance Cloudy H (Clear) Urine pH 5.0 (5.0-8.0) Ur Specific [place] 1.020 (1.001-1.035) Urine Protein Negative (Negative) Urine Glucose (UA) Negative (Negative) Urine Ketones Negative (Negative) Urine Blood Small H (Negative) Urine Nitrite Negative (Negative) Urine Bilirubin Negative (Negative) Urine Urobilinogen <2.0 (<2.0) mg/dL Ur Leukocyte Esterase Large H (Negative) Urine RBC 8 H (0-5) /hpf Urine WBC 45 H (0-5) /hpf Ur Squamous Epith Cells <1 (0-4) /hpf Urine Bacteria Many H (None) /hpf Urine Mucus Rare H (None) /hpf - EKG Data -: EKG Interpreted by Me EKG Comments: 12-lead Electrocardiogram Interpretation Note EKG was reviewed and interpreted by myself. 12-lead ECG performed at sinus bradycardia is interpreted by me as revealing normal sinus rhythm at a rate of 56 beats per minute. [place] is normal. NC interval is 134 ms, QRS duration is 77 ms, QTc is 425 ms.. There were no ST or T wave abnormalities to suggest myocar dial ischemia or injury. R wave progression across the precordium was satisfactory. By my interpretation this EKG is non-diagnostic for acute ischemia. Disposition Clinical Impression: Post-op pain, UTI (urinary tract infection) Disposition: HOME SELF-CARE Condition: Good Instructions (If sedation given, give patient instructions): Urinary Tract Infection in Women (DC), Acute Abdominal Pain (ED) Additional Instructions: Follow-up with your surgeon. Follow-up with orthopedic software engineering specialist if continued back pain. Complete course of antibiotics for UTI. Follow-up with PCP in the next 1 to 3 days. Please return to the emergency department if any worsening symptoms. Prescriptions: Cholestyramine (with Sugar) [Cholestyramine Powder] 4 gm PO BID #300 gm Cephalexin [Keflex] 500 mg PO Q12HR 7 Days #14 cap Is patient prescribed a controlled substance at d/c from ED?: No Referrals: Mita García MD [Primary Care Provider] - 1-2 days Viviane James MD [STAFF PHYSICIAN] - 1-2 days Domenico Padgett DO [Doctor of Osteopathic Medicine] - 1-2 days Time of Disposition: 13:21
[2024-08-10 09:44] LABS: AST 29 U/L (14-36); Albumin 4.1 g/dL (3.5-5.0); Alkaline Phosphatase 45 U/L (38-126); INR 0.9 (<1.2); Partial Thromboplastin Time 26.8 sec (22.0-30.0); Prothrombin Time 10.1 sec (10.0-12.5); Total Protein 6.7 g/dL (6.3-8.2)
[2024-08-10] MEDS: ONDANSETRON 4 MG/2 ML VIAL IVP STA (09:50)
[2024-08-10] MEDS: PANTOPRAZOLE 40 MG/10 ML VIAL IVP STA (09:52)
--- NOTE | 2024-08-10 10:30 | US ---
EXAMINATION TYPE: US gallbladder DATE OF EXAM: 08/10/2024 COMPARISON: NONE CLINICAL INDICATION: Female, 64 years old with history of recent cholecystectomy. abd pain. eval live r/cbd; 2 weeks ago had cholecystectomy, pain ever since TECHNIQUE: Grayscale and color Doppler imaging of the right upper quadrant was performed. FINDINGS: EXAM MEASUREMENTS: Liver Length: 16.8 cm, mildly prominent Gallbladder Wall: Surgically absent CBD: 0.5 cm Right Kidney: 9.1 x 4.0 x 3.9 cm Pancreas: wnl Liver: Mild hepatomegaly Gallbladder: fossa clips seen, surgically absent. No localized fluid is evident Evidence for sonographic Gaming's sign: no CBD: wnl Right Kidney: wnl IMPRESSION: 1. Mild hepatomegaly. 2. Postsurgical changes. No suspicious change since the suggest bile leak. Nuclear medicine hepatobil iary scan can be performed for suspicion clinical suspicion. [facility], Workstation: [facility], 08/10/2024 10:28 AM
--- NOTE | 2024-08-10 12:48 | CT ---
EXAMINATION TYPE: CT abdomen pelvis w con DATE OF EXAM: 08/10/2024 11:08 AM COMPARISON: 08/09/2015 CLINICAL INDICATION: Female, 64 years old with history of abdominal pain. post op., Abdominal pain, c hronic diarrhea post katelyn 2 weeks ago TECHNIQUE: Axial images were obtained from above the diaphragm to the pubic rami in the axial plane a t 5 mm thick sections. Reconstructed images are reviewed on the computer in the coronal plane. CONTRAST: 100 mL of Isovue 300. Study performed with Oral Contrast DLP: 420.8 mGycm, Automated exposure control for dose reduction was used. FINDINGS: Limited CT sections are obtained the lung bases. Lung bases are clear.. CT ABDOMEN: Liver: Normal Spleen: Normal Pancreas: Normal Adrenal glands: The adrenal glands are normal. Gallbladder: Absent. No suspicious fluid collections are within the gallbladder fossa. Some postsurg ical change is present Kidneys: . The high riding posterior and adjacent to the diaphragms. No masses are evident. No hydron ephrosis is present. Couple of tiny cortical renal cysts are present. Delayed images were obtained through the kidneys, which remain unremarkable. Aorta: Vascular calcification is within the aorta. Inferior vena cava: Normal. CT PELVIS: Some mild fluid-filled small bowel loops and colon are present. No obstruction is evident. There are loops of bowel which are incompletely distended or lack oral contrast limiting their evaluation. Appendix: Not identified. No suspicious dilated tubular structure or inflammatory change is evident. Urinary bladder: Normal. Genitourinary structures: Uterus and ovaries not identified Osseous structures: No suspicious lytic or sclerotic lesions. Scoliosis is present. IMPRESSION: 1. Postsurgical changes from cholecystectomy. Suspicious fluid collection not identified. 2. Mild prominence of small bowel loops, no obstruction evident. Mild ileus may be present. [facility], Workstation: [facility], 08/10/2024 12:46 PM
[2024-08-10 13:36] VITALS: BP 111/85; PULSE 59; RESP 17; TEMP 97.9
== END 2024-08-10 13:40 | disposition home or self-care (01) ==
LOC: EC 08:41
DX: G89.18 Other acute postprocedural pain (principal); N39.0 Urinary tract infection, site not specified; Z88.5 Allergy status to narcotic agent; Z87.891 Personal history of nicotine dependence; Z90.710 Acquired absence of both cervix and uterus
CPT/HCPCS: 36415; 93005; 80053; 82150; 83605; 83690; 85025; 85610; 85730; 81001; 87086; 76705; 74177; 99285; 96365; 96375 ×2; 96361; J2405; J0696; Q9967; J2470